=== PATIENT | female | born 2000 | race Caucasian/White ===

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

== ENCOUNTER 2018-02-19 10:22 | Emergency (ER) | payer SELFPAY ==
[2018-02-19 11:03] LABS: #Basophils 0.1 thou/uL (0.0-0.2); #Eosinphils 0.2 thou/uL (0.0-0.7); #Lymphocytes 2.4 thou/uL (1.20-3.40); #Monocytes 0.7 thou/uL (0.11-0.59); #Neutrophils 10.1 thou/uL (1.40-6.50); %Basophils 0.6 % (0.0-1.0); %Eosinophils 1.2 % (0.0-10.0); %Lymphocytes 17.9 % (28.0-48.0); %Monocytes 4.9 % (0.0-4.0); %Neutrophils 75.5 % (31.0-61.0); Hemoglobin 13.3 g/dL (12.0-16.0); Mean Corpuscular HGB CONC 34.4 g/dL (32.0-36.0); Mean Corpuscular Hemoglobin 31.7 pg (25.0-35.0); Mean Corpuscular Volume 92.3 fL (78.0-98.0); Platelet Count 361 thou/uL (130-400); RBC Distribution Width 11.8 % (11.5-14.5); White Blood Cell (WBC) Count 13.4 thou/uL (4.8-10.8)
[2018-02-19 11:27] LABS: ALT (SGPT) 31 U/L (8-55); AST (SGOT) 15 U/L (5-30); Albumin 3.9 g/dL (3.5-5.0); Alkaline Phosphatase 67 U/L (40-150); Anion Gap 13 mmol/L (10-20); BUN (Urea Nitrogen) 7 mg/dL (8.4-21.0); Bilirubin, Total 0.5 mg/dL (0.2-1.2); Calc. Creatinine Clearance 0 mL/min (70-130); Calcium 8.9 mg/dL (7.8-10.44); Carbon Dioxide 21 mmol/L (22-29); Chloride 105 mmol/L (98-107); Estimated GFR-MDRD Greater than 90; Globulin 2.5 g/dL (2.4-3.5); Glucose 138 mg/dL (70-105); Potassium 3.6 mmol/L (3.5-5.1); Protein, Total 6.4 g/dL (6.0-8.3); Sodium 135 mmol/L (136-145)
[2018-02-19 12:18] LABS: Bilirubin Negative (Negative); Blood, Urine Negative (Negative); Clarity CLOUDY (Clear); Glucose, Urine (Dipstick) Negative (Negative); Leukocyte Negative (Negative); Nitrite Negative (Negative); Protein, Urine (Dipstick) Negative (Neg-Trace); Specific Gravity, Urine 1.023 (1.002-1.036); Urobilinogen 0.2 mg/dL (0.2-1.0); pH, Urine 6.5 (5.0-9.0)
== END 2018-02-19 12:40 | disposition home or self-care (01) ==
LOC: ERS 10:22
DX: O21.9 Vomiting of pregnancy, unspecified (principal); O99.351 Diseases of the nervous system complicating pregnancy, first trimester; G43.909 Migraine, unspecified, not intractable, without status migrainosus; Z3A.01 Less than 8 weeks gestation of pregnancy
CPT/HCPCS: 36415; 80053; 81003; 84702; 85025

== ENCOUNTER 2018-03-21 13:54 | Emergency (ER) | payer OTHER, SELFPAY ==
[2018-03-21] MEDS ORDERED: Ondansetron HCl/PF 4 MG/2 ML Vial ONE (14:26)
[2018-03-21] MEDS ORDERED: Acetaminophen 500 MG TAB ONE (14:33)
== END 2018-03-21 16:10 | disposition home or self-care (01) ==
LOC: ERS 13:54
DX: O21.0 Mild hyperemesis gravidarum (principal); O99.351 Diseases of the nervous system complicating pregnancy, first trimester; G43.909 Migraine, unspecified, not intractable, without status migrainosus; Z3A.10 10 weeks gestation of pregnancy
CPT/HCPCS: 96361; 96374; J2405

== ENCOUNTER 2018-06-29 10:44 | Day surgery (SDC) | payer OTHER ==
[2018-06-29 11:18] VITALS: BMI 42.5
--- NOTE | 2018-06-29 11:26 | PDOC.FPROB ---
FMR OB H&P: HPI - History of Present Illness Chief Complaint: Lower pelvic pain History of Present Illness: 17 yo G1 @ 24.4 by LMP c/w 9.1 wk sono. ANNITA 10/11/18. Presents with complaint of lower pelvic pain and cramping that began 5 days ago. Pain described as sharp, 6 -8/10. Has tried resting and stretching which does not relieve pain. Also endorses R sided low back and side pain that began yesterday. Dysuria for 4 days. Never had UTI in past. Subjective fever, reports over the weekend she felt very hot at work, boss told her to go to ED but she just went home. Reports 2-3 watery stools/day for 3 days. Vomiting x1 last night. Able to tolerate water but no food since that time. Primary Care Physician: Pedro FMR OB H&P: Current - Care : 1 Para: 0 Gestational age: 24.4 Due date: 10/11/2018 Dating Criteria: LMP c/w 9.1 wk US - OB Labs Blood type: O RH: positive Antibody Screen: negative HIV: negative RPR: negative HepBsAg: negative Rubella: immune Urine drug screen: not done A1c: 5.4 - First Trimester Ultrasound First trimester: 9.1 wks - Anatomy Survey Anatomy survey: 22.1 wks. EFW 58%, normal FMR OB H&P: History - Past Medical History PMH: Chronic HTN - OB History OB History: None - Surgical History Sx History: None - Social History Social History: Lives with fiance. No tobacco, alcohol, or drug use. - Family History Family History: Adopted FMR OB H&P: Medications - Current Home Medications: Medication Instructions Recorded Confirmed Type Vit 108/Iron/Folic AC 1 capsule PO DAILY 06/29/18 06/29/18 History [ One Tablet] Allergies/Adverse Reactions: Allergies Allergy/AdvReac Type Severity Reaction Status Date / Time lavender (Lavandula Allergy Verified 06/29/18 11:14 angustifolia) FMR OB H&P: ROS - Review of Systems General: reports: fever/chills (subjective) Cardiovascular: denies: chest pain, edema Respiratory: denies: shortness of breath Gastrointestinal: reports: abdominal pain, cramping, vomiting, diarrhea Genitourinary (Female): reports: dysuria. denies: vaginal discharge, vaginal bleeding Musculoskeletal: reports: pain, tenderness FMR OB H&P: Vital Signs - Heart Tones Baseline: 135 FMR OB H&P: Physical Exam - Physical Exam General: NAD, awake, alert and oriented HEENT: MMM Heart: RRR, no murmurs/rubs/gallops, no edema General: CTAB, no respiratory distress Abdomen: gravid, bowel sound present, other (suprabupic tenderness) Musculoskeletal: other (R back and flank TTP) Skin: good tugor, capillary refill <2 seconds FMR OB H&P: A/P - Problem List (1) Lower abdominal pain Current Visit: Yes Status: Acute Code(s): R10.30 - LOWER ABDOMINAL PAIN, UNSPECIFIED Discussion: Date/Time: 06/29/18 1124 Low abdominal pain - associated with dysuria, R back/flank pain, loose stool, N/V - Concern for UTI. Will check CBC, CMP, UA, Ucx - appears clinically well hydrated, encourage PO hydration Dispo: pending workup This H&P was discussed with Dr. Guillermo and Dr. Lopes who agree with the above documentation and plan. Addendum - Attending - Attending Attestation Date/Time: 06/29/18 1353 I personally evaluated the patient and discussed the management with Dr. Stiles and team. I agree with and repeated the History, Examination, Assessment and Plan documented above with any addition or exceptions noted below. Patient with no fever. No RLQ. On exam no sig SPT or CVA tenderness, no guarding, rigidity, mcb tenderness/rovsings. Denies any leakage of fluid or bleeding. Likely gastro vs UTI. Low suspicion for IAI or appendicitis. Workup as listed.
[2018-06-29 11:51] LABS: #Basophils 0.1 thou/uL (0.0-0.2); #Eosinphils 0.3 thou/uL (0.0-0.7); #Lymphocytes 2.4 thou/uL (1.20-3.40); #Monocytes 0.9 thou/uL (0.11-0.59); #Neutrophils 9.3 thou/uL (1.40-6.50); %Basophils 0.4 % (0.0-1.0); %Eosinophils 2.3 % (0.0-10.0); %Lymphocytes 18.2 % (28.0-48.0); %Monocytes 7.1 % (0.0-4.0); Mean Corpuscular HGB CONC 34.7 g/dL (32.0-36.0); Mean Corpuscular Hemoglobin 32.1 pg (25.0-35.0); Mean Corpuscular Volume 92.5 fL (78.0-98.0); Mean Platelet Volume 6.6 fL (7.4-10.4); Platelet Count 377 thou/uL (130-400); RBC Distribution Width 11.8 % (11.5-14.5); Red Blood Cell (RBC) Count 3.42 mill/uL (4.00-5.20); White Blood Cell (WBC) Count 12.9 thou/uL (4.8-10.8)
[2018-06-29 11:56] LABS: Bilirubin Negative (Negative); Blood, Urine Negative (Negative); Clarity TURBID (Clear); Glucose, Urine (Dipstick) Negative (Negative); Leukocyte Negative (Negative); Nitrite Negative (Negative); Protein, Urine (Dipstick) Negative (Neg-Trace); Specific Gravity, Urine 1.018 (1.002-1.036)
[2018-06-29 13:20] LABS: ALT (SGPT) 25 U/L (8-55); AST (SGOT) 13 U/L (5-30); Albumin 3.3 g/dL (3.5-5.0); Alkaline Phosphatase 84 U/L (40-150); Anion Gap 10 mmol/L (10-20); BUN (Urea Nitrogen) 5 mg/dL (8.4-21.0); Bilirubin, Total 0.3 mg/dL (0.2-1.2); Calc. Creatinine Clearance 320 mL/min (70-130); Calcium 8.7 mg/dL (7.8-10.44); Carbon Dioxide 24 mmol/L (22-29); Chloride 108 mmol/L (98-107); Estimated GFR-MDRD Greater than 90; Globulin 2.7 g/dL (2.4-3.5); Glucose 87 mg/dL (70-105); Potassium 4.2 mmol/L (3.5-5.1); Sodium 138 mmol/L (136-145)
--- NOTE | 2018-06-29 13:41 | PDOC.EVN ---
Event Note - Event Note Event Note: Labs normal, UA negative. Patient tolerating liquids and crackers well. Symptoms seem most likely due to gastroenteritis at this time. Considering patient's symptoms, will still send urine culture. Return precautions given including recurrent or worsening pain, fever. Patient has appt in clinic scheduled for tomorrow for follow up. Addendum - Attending - Attending Attestation Date/Time: 06/29/18 1355 Agree with plan. Completely negative UA. Symptoms of AGE, no evidence of dehydration. Tolerating PO well. Strict return warnings and short term follow up in clinic.
== END 2018-06-29 13:39 | disposition home or self-care (01) ==
LOC: L&D/OP 10:44
PROVIDERS: ATTEND Emergency Medicine
DX: O99.89 Other specified diseases and conditions complicating pregnancy, childbirth and the puerperium (principal); R10.2 Pelvic and perineal pain; O16.2 Unspecified maternal hypertension, second trimester; Z3A.24 24 weeks gestation of pregnancy; J30.1 Allergic rhinitis due to pollen
CPT/HCPCS: 36415; 80053; 81003; 85025; 87086

== ENCOUNTER 2018-08-09 17:16 | Day surgery (SDC) | payer OTHER ==
[2018-08-09 18:37] VITALS: BMI 42.5
--- NOTE | 2018-08-09 20:14 | PDOC.LDHP ---
Labor and Delivery H&P Chief complaint: abdominal pain HPI: Ms. Milligan presents today for lower abdominal pain She reports earlier today she was walking to work when she starting having sharp pain in her lower abdomen radiating up her side along with back pain. She has a history of N/V, but has been tolerating liquids well recently. She denies any ctx, LOF, VB/VD, KELLY, CP, or swelling. Current gestational age (weeks): 31 (.1) Due date: 10/10/18 Dating criteria: last menstrual period, first trimester ultrasound Grav: 1 Para: 0 Current complications: none Abnormal US findings: No Past Medical History: none reported Current medications: pre- vitamins Previous surgical history: none Allergies/Adverse Reactions: Allergies Allergy/AdvReac Type Severity Reaction Status Date / Time grass pollen-perennial rye, Allergy Verified 08/09/18 18:07 standar lavender (Lavandula Allergy Verified 08/09/18 18:07 angustifolia) Social history: none - Physical Exam Vital signs reviewed and normal: yes General: NAD Heart: RRR Lungs: CTAB Abdomen: NTTP Extremeties: no edema FHT: variability present (baseline 150, acceleration, no decels) [place] contractions every: none - Assessment round ligament pain - Plan -: DC home after counseling regarding pains and appropriate analgesics
== END 2018-08-09 20:28 | disposition home health service (06) ==
LOC: L&D/OP 17:16
PROVIDERS: ATTEND Family Medicine
DX: O99.89 Other specified diseases and conditions complicating pregnancy, childbirth and the puerperium (principal); R10.2 Pelvic and perineal pain; Z79.899 Other long term (current) drug therapy; Z91.048 Other nonmedicinal substance allergy status; Z3A.31 31 weeks gestation of pregnancy
CPT/HCPCS: 99282

== ENCOUNTER 2018-09-28 20:00 | Inpatient (IN) | payer OTHER ==
[2018-09-28 21:37] VITALS: BMI 42.8
[2018-09-28] MEDS ORDERED: NS / Oxytocin 40 units/1000ml 1,000 ML IV PRN (21:59)
[2018-09-28] MEDS ORDERED: Promethazine HCl 25 MG/ML VIAL IM PRN (21:59)
[2018-09-28] MEDS ORDERED: Lidocaine 1% (PF) 30 ML VIAL SC PRN (21:59)
[2018-09-28] MEDS ORDERED: Ondansetron PF 4 MG/2 ML Vial IVP PRN (21:59)
[2018-09-28] MEDS: Lactated Ringer's 1,000 ML IV SCH (22:11)
[2018-09-28] MEDS ORDERED: Misoprostol 100 MCG TAB ONE (22:34)
[2018-09-28 23:11] LABS: Hemoglobin 10.4 g/dL (12.0-16.0); Mean Corpuscular Hemoglobin 30.3 pg (25.0-35.0); Mean Platelet Volume 7.4 fL (7.4-10.4); Platelet Count 418 thou/uL (130-400); RBC Distribution Width 12.6 % (11.5-14.5); Red Blood Cell (RBC) Count 3.44 mill/uL (4.00-5.20); White Blood Cell (WBC) Count 13.1 thou/uL (4.8-10.8)
--- NOTE | 2018-09-28 23:23 | PDOC.FPROB ---
FMR OB H&P: HPI - History of Present Illness Chief Complaint: induction of labor Indentification: G1 History of Present Illness: 17yo G1 at 38.1w EGA by LMP and 9.1w US presents for induction of labor 2/2 pregestational htn. Pt is doing well with no complaints. No KELLY, visual changes, no CP no SOB no edema. Pt denies vaginal bleeding/LOF and states she has mild painless contractions every 20 min. Reports good mvmt. Primary Care Physician: Dr. Michelle Vasquez FMR OB H&P: Current - Care : G1 Gestational age: 38.1 Dating Criteria: LMP and 1TUS - OB Labs Blood type: O RH: positive Antibody Screen: negative HIV: negative RPR: negative HepBsAg: negative Rubella: immune GBS: negative FMR OB H&P: History - Past Medical History PMH: HTN - Surgical History Sx History: wisdom teeth 2016 - Social History Social History: denies t/a/d - Family History Family History: unkown. pt adopted FMR OB H&P: Medications - Current Home Medications: Medication Instructions Recorded Confirmed Type Vit 108/Iron/Folic AC 1 capsule PO DAILY 06/29/18 09/28/18 History [ One Tablet] Allergies/Adverse Reactions: Allergies Allergy/AdvReac Type Severity Reaction Status Date / Time grass pollen-perennial rye, Allergy Verified 09/28/18 21:35 standar lavender (Lavandula Allergy Verified 09/28/18 21:35 angustifolia) FMR OB H&P: ROS - Review of Systems General: denies: fever/chills, fatigue Eyes: denies: eye pain, vision changes ENT: denies: nasal congestion, ear pain Cardiovascular: denies: chest pain, palpitation, edema Respiratory: denies: cough, congestion, shortness of breath Gastrointestinal: denies: abdominal pain, indigestion Genitourinary (Female): denies: incontinence, dysuria Musculoskeletal: denies: pain, stiffness, tenderness Neurologic: denies: numbness, syncope, seizures Integumentary: denies: rash, lesions Endocrine: denies: cold intolerance, heat intolerance Hematologic/Lymphatic: denies: prolonged or excessive bleeding Psychological: denies: depression, anxiety FMR OB H&P: Vital Signs - Maternal Vital signs: BP 120/84, all other WNL - Heart Tones Baseline: 150 Variability: moderate Category: category 1 [place] contractions every: 8min FMR OB H&P: Physical Exam - Physical Exam General: NAD, awake, alert and oriented HEENT: normocephalic and atraumatic, EOMI, grossly normal vision, grossly normal hearing Neck: supple, trachea midline Chest: non-tender to palpation Breast: symmetric Heart: RRR, normal S1/S2 General: CTAB, no respiratory distress Abdomen: soft, gravid Musculoskeletal: normal gait and station, pulses present Neurological: no tremor, no focal deficit Skin: no rash, good tugor Lymphatic: no unusual bruising or bleeding, no purpura Psychiatric: intact recent and remote memory, good judgement and insight - Pelvic Exam Vulva: normal hair distribution SVE: //-3 FMR OB H&P: Results - Labs Lab results: Laboratory Results - last 24 hr 09/28/18 22:59 WBC 13.1 H RBC 3.44 L Hgb 10.4 L Hct 30.6 L MCV 89.0 MCH 30.3 MCHC 34.0 RDW 12.6 Plt Count 418 H MPV 7.4 FMR OB H&P: A/P - Problem List (1) Encounter for induction of labor Current Visit: Yes Status: Acute Code(s): Z34.90 - ENCNTR FOR SUPRVSN OF NORMAL , UNSP, UNSP TRIMESTER (2) Hypertension affecting in third trimester Current Visit: Yes Status: Acute Code(s): O16.3 - UNSPECIFIED MATERNAL HYPERTENSION, THIRD TRIMESTER Discussion: Term IUP, induction of labor A- Pt doing well and ready for induction. Cervix is unfavorable at this time. labwork over all unremarkable other than ALT 69 in 02/2018. P- Admit to L and D for induction - cytotec vaginally - cervical checks q4hr - monitor FHT - consult anesthesiology for epidural Pregestational HTN A- BPS < 140/90 in clinic, today they wnl, pt has no symptoms of pre-e or hypertensive emergency. Recent BPP/NST 04/07 P- monitor BPs Addendum - Attending - Attending Attestation Date/Time: 09/29/18 0700 I personally evaluated the patient and discussed the management with Dr. Stephenson at time of admission last night. I agree with the History, Examination, Assessment and Plan documented above with any addition or exceptions noted below. Medically indicated induction at 38 weeks for chronic HTN in consistent with ACOG recommendations.
[2018-09-28 23:42] LABS: Syphilis Antibody Nonreactive (Nonreactive); Syphilis Antibody Index 0.03 S/CO (<1.00 Non-Reactive)
[2018-09-28 23:53] LABS: HBSAg Index 0.41 S/CO (0-0.99); Hep B Surf Ag Non-Reactive S/CO (NonReactive)
[2018-09-29 00:04] LABS: ALT (SGPT) 22 U/L (8-55); AST (SGOT) 18 U/L (5-30); Albumin 3.4 g/dL (3.5-5.0); Alkaline Phosphatase 185 U/L (40-150); Anion Gap 15 mmol/L (10-20); BUN (Urea Nitrogen) 8 mg/dL (8.4-21.0); Bilirubin, Total 0.3 mg/dL (0.2-1.2); Calc. Creatinine Clearance 300 mL/min (70-130); Calcium 9.4 mg/dL (7.8-10.44); Carbon Dioxide 21 mmol/L (22-29); Chloride 107 mmol/L (98-107); Estimated GFR-MDRD Greater than 90; Globulin 2.8 g/dL (2.4-3.5); Glucose 99 mg/dL (70-105); Potassium 4.2 mmol/L (3.5-5.1); Protein, Total 6.2 g/dL (6.0-8.3); Sodium 139 mmol/L (136-145)
[2018-09-29] MEDS: Lactated Ringer's 1,000 ML IV SCH (02:58)
--- NOTE | 2018-09-29 03:11 | PDOC.LDPN ---
Labor & Delivery Progress Note - Subjective Subjective: comfortable, no concerns - Objective Vital signs reviewed and normal: yes General: NAD, resting SVE: 1/60/-3 FHT: category 1 (baseline 150) [place] contractions every: 2-3 Resuscitative measures: maternal IV fluids - Assessment (1) Encounter for induction of labor Code(s): Z34.90 - ENCNTR FOR SUPRVSN OF NORMAL , UNSP, UNSP TRIMESTER Current Visit: Yes Status: Acute (2) Hypertension affecting in third trimester Code(s): O16.3 - UNSPECIFIED MATERNAL HYPERTENSION, THIRD TRIMESTER Current Visit: Yes Status: Acute Plan: continue plan of care -: - 2nd dose of cytotec held for frequency of contractions, continue as tolerated - continue IVF - continue to monitor FHT
[2018-09-29] MEDS: Misoprostol 100 MCG TAB VAG SCH ×4 (04:20→12:54)
--- NOTE | 2018-09-29 07:29 | PDOC.LDPN ---
Labor & Delivery Progress Note - Subjective Subjective: comfortable - Objective Vital signs reviewed and normal: yes General: NAD, resting Uterine fundus: non tender Dilation: 1 Effacement: 50% Station: -2 FHT: category [address] [place] contractions every: 8min -: 17yo G1 at 38.2wk by LMP and 9.1wk US sIUP - Placed cytotec as she is no longer sabine and no change since last SVE - /-2 - FHTs Cat 1 - Continue serial cerival exams - No G/C screening done this , placed order for G/C cHTN - Not on meds - BP 113/68 - Pre-E workup neg x2 in clinic BMI 41 - Wt has been stable during 3T - 12lb wt gain this 1T tobacco abuse - Not currently smoking Migraines - Stable Anemia of - Hgb 10.4 Teen
--- NOTE | 2018-09-29 11:42 | PDOC.LDPN ---
Labor & Delivery Progress Note - Subjective Subjective: comfortable - Objective Vital signs reviewed and normal: yes General: NAD Uterine fundus: non tender Dilation: 1 Effacement: 50% Station: -2 FHT: category 1 (150/mod/+ accels/no decels) [place] contractions every: 2-4min Plan: continue plan of care -: 17yo G1 at 38.2wk by LMP and 9.1wk US sIUP - Placed cytotec x4 - Radu every 2-4 min - 1/50/-2, unchanged - FHTs 150 Cat 1 - Continue serial cervical exams - G/C pending cHTN - Not on meds - BPs <130/90 - Pre-E workup neg x2 in clinic BMI 41 - Wt has been stable during 3T - 12lb wt gain this 1T tobacco abuse - Not currently smoking Migraines - Stable Anemia of - Hgb 10.4 Teen
--- NOTE | 2018-09-29 17:30 | ULT ---
NONSTRESS BIOPHYSICAL PROFILE: 09/29/18 HISTORY: Failed induction of labor. COMPARISON: None. FINDINGS: A single intrauterine gestation with vertex presentation. heart tones with a rate of 145 beats per minute. Amniotic fluid index is 13.4 cm. Anterior placenta. NONSTRESS BIOPHYSICAL PROFILE: tone - 2 breathing - 2 movement - 2 Amniotic fluid - 2 Total score 8 out of 8. IMPRESSION: Nonstress biophysical profile with a total score of 8 out of 8. POS: [facility]
--- NOTE | 2018-09-29 18:04 | PDOC.EVN ---
Event Note - Event Note Event Note: Patient remained unchanged after 4 doses of vaginal cytotec. She started sabine after her 2nd dose but stopped shortly after her 3rd dose and did not resume contractions after her 3rd or 4th dose. Her cervix remained unchanged for roughly 6 hours. During the entire induction, the FHT was reassuring with no signs of distress. Additionally, review of blood pressures during the current visit and previous visits revealed a highest recorded blood pressure of 138/79 which occurred during the induction. She had 2 additional BPs in the 120s/70s. Her mother also reported no abnormal BP readings at home. Patient states her BP usually becomes elevated when she comes to the clinic but agreed that her BPs were normal at home. Give that she had not progressed with the induction and her chronic hypertension may be white coat hypertension. A long discussion was had regarding her options for the management of her inductions. These options included a 5th dose of Cytotec, placement of a Cooks balloon, or stopping inductive measures with plan to repeat the induction next week. She was counseled that continuing with the induction at this time did increase her risk of intraamniotic infection, distress, and need for . She decided that she would like to go home and attempt the induction next week. Prior to discharge, a BPP/NST was performed and was 8/8 with a reactive NST. She was not sabine on the monitor. She was given strict return to care precautions including decreased movement, loss of fluid, contractions, and vaginal bleeding. A follow up BPP/NST was scheduled at 1500 on 10/01/18 at [facility] and she was scheduled for repeat IOL on the evening of 10/04/18. All of her questions were answered and she was subsequently discharged.
[2018-10-01 17:06] LABS: Chlamydia by PCR DETECTED (NotDetected); GC by PCR Not Detected (NotDetected)
== END 2018-09-29 17:15 | disposition home health service (06) | DRG 833 ==
LOC: L&D 21:04
PROVIDERS: ADMIT Family Medicine; ATTEND Family Medicine
DX: O13.3 Gestational [pregnancy-induced] hypertension without significant proteinuria, third trimester (principal); D64.9 Anemia, unspecified; G43.909 Migraine, unspecified, not intractable, without status migrainosus; O99.013 Anemia complicating pregnancy, third trimester; O99.353 Diseases of the nervous system complicating pregnancy, third trimester; Z3A.38 38 weeks gestation of pregnancy; Z87.891 Personal history of nicotine dependence
CPT/HCPCS: 36415; 76819; 80053; 84550; 85027; 86780; 86850; 86900; 86901; 87340; 87491; 87591

== ENCOUNTER 2018-10-04 22:00 | Inpatient (IN) | payer OTHER ==
--- NOTE | 2018-10-04 21:07 | PDOC.FPROB ---
FMR OB H&P: HPI - History of Present Illness Chief Complaint: induction for cHTN Indentification: 17yo G1 at 39 wks by LMP and 9.1w US History of Present Illness: 17yo at 39 wks by LMP and 9.1w US presents for induction of labor 2/2 pregestational htn. Primary Care Physician: Dr. Michelle Vasquez FMR OB H&P: Current - Care : 1 Para: 0 Gestational age: 39 Due date: 10/11/18 Dating Criteria: LMP/9.1 wk sono Course/Complications: cHTN - OB Labs Blood type: O RH: positive Antibody Screen: negative HIV: negative RPR: negative HepBsAg: negative Rubella: immune GBS: negative FMR OB H&P: History - Past Medical History PMH: cHTN - Surgical History Sx History: wisdom teeth, 2016 - Social History Social History: denies t/a/d use - Family History Family History: unknown as patient is adopted FMR OB H&P: Medications - Current Home Medications: Medication Instructions Recorded Confirmed Type Vit 108/Iron/Folic AC 1 capsule PO DAILY 06/29/18 09/28/18 History [ One Tablet] Allergies/Adverse Reactions: Allergies Allergy/AdvReac Type Severity Reaction Status Date / Time grass pollen-perennial rye, Allergy Verified 09/28/18 21:35 standar lavender (Lavandula Allergy Verified 09/28/18 21:35 angustifolia) FMR OB H&P: A/P - Problem List (1) Encounter for induction of labor Status: Acute Code(s): Z34.90 - ENCNTR FOR SUPRVSN OF NORMAL , UNSP, UNSP TRIMESTER (2) Hypertension affecting in third trimester Status: Acute Code(s): O16.3 - UNSPECIFIED MATERNAL HYPERTENSION, THIRD TRIMESTER Discussion: Date/Time: 10/04/182104 TIUP, induction of labor for cHTN -Admit to L&D for induction -SVE: -FHTs: -previous failed induction with cytotecx4 1 week ago -cytotec? -cervical checks q4hr -continuous FHT -consult anesthesia for epidural cHTN -No s/s HTN? -Continue to monitor BPs L Buse PGY-1
[2018-10-05] MEDS ORDERED: Sodium Chloride 0.9% (PF) 10 ML VIAL ONE (09:00)
[2018-10-05] MEDS ORDERED: Bupivacaine 0.25% HCL 30 ML VIAL ONE (09:00)
[2018-10-05] MEDS ORDERED: Bupivacaine HCl 0.5%/Epinephrine 1:200,000/PF 30 ml Vial ONE (09:00)
[2018-10-05 22:14] VITALS: BMI 42.8
[2018-10-05] MEDS: Lactated Ringer's 1,000 ML IV SCH (22:45)
[2018-10-05] MEDS ORDERED: Ibuprofen 800 MG TAB PO PRN (22:58)
[2018-10-05] MEDS ORDERED: Promethazine HCl 25 MG/ML VIAL IM PRN (22:58)
[2018-10-05] MEDS ORDERED: Lidocaine 1% (PF) 30 ML VIAL SC PRN (22:58)
[2018-10-05] MEDS ORDERED: NS / Oxytocin 40 units/1000ml 1,000 ML IV PRN (22:58)
[2018-10-05 23:07] LABS: Hemoglobin 10.6 g/dL (12.0-16.0); Mean Corpuscular HGB CONC 34.6 g/dL (32.0-36.0); Mean Corpuscular Hemoglobin 30.7 pg (25.0-35.0); Mean Corpuscular Volume 88.6 fL (78.0-98.0); Mean Platelet Volume 7.3 fL (7.4-10.4); Platelet Count 404 thou/uL (130-400); RBC Distribution Width 12.8 % (11.5-14.5); Red Blood Cell (RBC) Count 3.45 mill/uL (4.00-5.20); White Blood Cell (WBC) Count 14.3 thou/uL (4.8-10.8)
[2018-10-05 23:46] LABS: HBSAg Index 0.28 S/CO (0-0.99); Hep B Surf Ag Non-Reactive S/CO (NonReactive)
[2018-10-05 23:54] LABS: Syphilis Antibody Nonreactive (Nonreactive); Syphilis Antibody Index 0.03 S/CO (<1.00 Non-Reactive)
[2018-10-05] MEDS ORDERED: Misoprostol 100 MCG TAB ONE (23:55)
--- NOTE | 2018-10-06 02:52 | PDOC.FPRHP ---
- History of Present Illness Chief Complaint: medically indicated IOL History of Present Illness: 17yo G1 at 39.1 EGA by LMP and 9.1w US presents for medically indicated IOL for cHTN. Pt is doing well with no complaints. No KELLY, visual changes, no CP no SOB no edema. Pt denies vaginal bleeding/LOF and states she is feeling CTX. Reports good mvmt. - Allergies/Adverse Reactions Allergies Allergy/AdvReac Type Severity Reaction Status Date / Time grass pollen-perennial rye, Allergy Verified 09/28/18 21:35 standar lavender (Lavandula Allergy Verified 09/28/18 21:35 angustifolia) - Home Medications Medication Instructions Recorded Confirmed Type Vit 108/Iron/Folic AC 1 capsule PO DAILY 06/29/18 10/05/18 History [ One Tablet] - History PMHx: cHTN PSHx: wisdom teeth FHx:unknown, pt adopted Social: denies e/t/d - Review of Systems General: denies: fever/chills, weight/appetite/sleep changes Eyes: denies: eye pain, vision changes ENT: denies: nasal congestion, rhinorrhea Respiratory: denies: cough, shortness of breath Cardiovascular: denies: chest pain, palpitation, edema Gastrointestinal: denies: nausea, vomiting, diarrhea, constipation, abdominal pain Skin: denies: rashes, lesions Musculoskeletal: denies: pain, tenderness Neurological: denies: seizure Psychological: denies: anxiety, depression - Vital signs BP: [] HR: [] RR: [] Tmax: [] Pox: []% on [] Wt: [] - Physical Exam Constitutional: NAD, awake, alert and oriented HEENT: normocephalic and atraumatic, PERRLA, EOMI Neck: supple, FROM, trachea midline Chest: no-tender to palpation, no lesions Heart: RRR, normal S1/S2, no murmurs/rubs/gallops Lungs: CTAB, no respiratory distress, no wheezing, no retractions Abdomen: soft FMR H&P: Results - Labs Result Diagrams: 10/05/18 22:54 Lab results: WBC 14.3 thou/uL (4.8-10.8) H 10/05/18 22:54 Hgb 10.6 g/dL (12.0-16.0) L 10/05/18 22:54 Hct 30.6 % (36.0-47.0) L 10/05/18 22:54 MCV 88.6 fL (78.0-98.0) 10/05/18 22:54 Plt Count 404 thou/uL (130-400) H 10/05/18 22:54 FMR H&P: Upper Level - Plan Date/Time: 10/06/18 0251 I, [], have evaluated this patient and agree with findings/plan as outlined by media relations intern resident. Pertinent changes/additions are listed here.
--- NOTE | 2018-10-06 02:55 | PDOC.LDHP ---
Labor and Delivery H&P HPI: 17yo G1 at 39.1w EGA by LMP and 9.1w US presents for medically IOL for cHTN, controlled. Pt is doing well with no complaints. No KELLY, visual changes, no CP no SOB no edema. Pt denies vaginal bleeding/LOF and states she feels CTX. Reports good mvmt. Current gestational age (weeks): 39 (39.2) Grav: 1 Para: 0 Current complications: other (chTN prior to ) Abnormal US findings: No Current medications: pre-beck vitamins, other (ASA in ) Allergies/Adverse Reactions: Allergies Allergy/AdvReac Type Severity Reaction Status Date / Time grass pollen-perennial rye, Allergy Verified 09/28/18 21:35 standar lavender (Lavandula Allergy Verified 09/28/18 21:35 angustifolia) - Physical Exam Lungs: nonlabored breathing Abdomen: NTTP Extremeties: no edema FHT: category 1, category 2 (150/min-mod/accels) - Vaginal Exam cm dilated: 2 Effacement: 50% Station: -2 - OB Labs Blood type: O RH: positive Antibody Screen: negative HIV: negative RPR: negative HEPSAg: negative GBS: negative Rubella: immune - Assessment L&D Assessment: medically indicated induction - Plan Plan: admit to L&D, cervical ripening -: Term sIUP, med. indicated induction of labor -admit to L&D for induction -/-3, cytotec x 1 & recheck -uterine irritability -FHT Cat 1-2 due to minimal variability after first cytotec, has now since resolved -consult anesthesia for epidural cHTN -BP <140/<90 here thus far, pt asx -Continue to monitor Obesity -will student counselor on lifestyle modification Discussed w/ Dr. Mcqueen Addendum - Attending - Attending Attestation Date/Time: 10/06/18 1044 I personally evaluated the patient and discussed the management with Dr. Matamoros at time of admission last night. I agree with the History, Examination, Assessment and Plan documented above with any addition or exceptions noted below.
[2018-10-06] MEDS: Lactated Ringer's 1,000 ML IV SCH ×4 (04:14→14:47)
[2018-10-06] MEDS: Misoprostol 100 MCG TAB VAG SCH ×3 (04:14→10:38)
[2018-10-06] MEDS ORDERED: Butorphanol Tartrate 1 MG/ML VIAL ONE (04:42)
[2018-10-06] MEDS ORDERED: Butorphanol Tartrate 1 MG/ML VIAL SLOW IVP PRN (05:14)
[2018-10-06] MEDS: Ondansetron PF 4 MG/2 ML Vial IVP PRN ×2 (07:36→13:21)
--- NOTE | 2018-10-06 08:02 | PDOC.LDPN ---
Labor & Delivery Progress Note - Subjective Subjective: painful contractions - Objective Vital signs reviewed and normal: yes General: NAD, resting Uterine fundus: non tender Dilation: 2.5-3 Effacement: 75% Station: -2 FHT: category 2 [place] contractions every: q7min Plan: continue plan of care -: Term sIUP, med. indicated induction of labor -admit to L&D for induction -/-3, cytotec x 1 -uterine irritability -FHT Cat 1-2 due to minimal variability after first cytotec, hold off on cytotec -stadol x1 -consult anesthesia for epidural -will bolus, check sugar to see if low cHTN -BP <140/<90 here thus far, pt asx -Continue to monitor Obesity -will residence counselor on lifestyle modification
[2018-10-06] MEDS ORDERED: Acetaminophen 325 MG TAB PO PRN (08:30)
[2018-10-06] MEDS ORDERED: ePHEDrine/0.9% NaCl/PF SYRINGE 50 mg/10 ml SLOW IVP PRN (08:30)
[2018-10-06] MEDS ORDERED: diphenhydrAMINE 50 MG/ML VIAL IVP PRN (08:30)
[2018-10-06] MEDS ORDERED: Lactated Ringer's 500 ML IV PRN (08:30)
[2018-10-06] MEDS ORDERED: Promethazine HCl 25 MG/ML VIAL IM PRN (08:30)
[2018-10-06] MEDS ORDERED: Communication Order-Pharmacy FS SCH (08:30)
[2018-10-06] MEDS ORDERED: Naloxone HCl 0.4 mg/ml Vial IVP PRN ×2 (08:30)
[2018-10-06] MEDS ORDERED: Ondansetron PF 4 MG/2 ML Vial IVP PRN (08:30)
[2018-10-06] MEDS ORDERED: Eucerin (Mineral Oil/Petrolatum,White) 30 gm Jar TOP PRN (08:30)
[2018-10-06] MEDS ORDERED: Fentanyl 4 mcg/Bup 0.1% Cadd 0 ML ONE (08:40)
[2018-10-06] MEDS ORDERED: Fentanyl 4 mcg/Bup 0.1% Cadd 100 ML ONE ×3 (08:46→19:07)
[2018-10-06] MEDS ORDERED: Azithromycin 250 MG TAB PO SCH (09:00)
[2018-10-06] MEDS ORDERED: Azithromycin 200 MG/5 ML Oral Suspension PO SCH (09:00)
[2018-10-06] MEDS ORDERED: NS w/ Oxytocin 10 units 500 ML IV SCH ×2 (11:30)
--- NOTE | 2018-10-06 11:52 | PDOC.LDPN ---
Labor & Delivery Progress Note - Subjective Subjective: comfortable - Objective Vital signs reviewed and normal: yes General: NAD Uterine fundus: non tender Dilation: 4 Effacement: 75% Station: -2 FHT: category 1 [place] contractions every: 3min - Assessment (1) Chlamydia infection affecting Code(s): O98.819 - OTH MATERNAL INFEC/PARASTC DISEASES COMP PREG, UNSP TRI; A74.9 - CHLAMYDIAL INFECTION, UNSPECIFIED Current Visit: Yes Status: Acute (2) Obesity affecting Code(s): O99.210 - OBESITY COMPLICATING , UNSPECIFIED TRIMESTER Current Visit: Yes Status: Acute (3) Encounter for induction of labor Code(s): Z34.90 - ENCNTR FOR SUPRVSN OF NORMAL , UNSP, UNSP TRIMESTER Current Visit: No Status: Acute (4) Hypertension affecting in third trimester Code(s): O16.3 - UNSPECIFIED MATERNAL HYPERTENSION, THIRD TRIMESTER Current Visit: No Status: Acute Plan: continue plan of care, labor augmentation -: 17yo G1 at 39.2wk by LMP and 9.1wk US Term sIUP, IOL for cHTN and Obesity - SVE /-2, cytotec x2. Starting Pitocin - Epidural placed, pt resting comfortably - FHT Cat 1 - Continue serial cervical checks Chlamydia infection - Positive on 09/29/18 - Will tx with Azithromycin - Cable Television Program Director on importance of close follow up outpt for signs conjunctivitis and pneumonia in infant cHTN - BPs <140/<90, pt asx - Continue to monitor - Pre-E workup neg x2 in clinic BMI 41 - Wt has been stable during 3T - 12lb wt gain this 1T tobacco abuse - Not currently smoking Migraines - Stable Anemia of - Hgb 10.6 Teen
[2018-10-06] MEDS: Fentanyl 4 mcg/Bupivacaine 0.1% Cassette 100 ML EPIDURAL SCH ×2 (14:37→19:13)
[2018-10-06] MEDS ORDERED: Fentanyl 100 MCG/2 ML VIAL ONE (16:06)
--- NOTE | 2018-10-06 16:35 | PDOC.LDPN ---
Labor & Delivery Progress Note - Subjective Subjective: painful contractions - Objective Vital signs reviewed and normal: yes General: breathing through contractions Uterine fundus: non tender Dilation: 6 Effacement: 90% Station: 0 FHT: category 2 (minimal variability) [place] contractions every: 3 IUPC placed: yes FSE placed: yes Resuscitative measures: maternal IV fluids, maternal position change - Assessment (1) Encounter for induction of labor Code(s): Z34.90 - ENCNTR FOR SUPRVSN OF NORMAL , UNSP, UNSP TRIMESTER Current Visit: No Status: Acute Plan: continue plan of care, pitocin for augmentation -: 17 yo @ 39.2 here for IOL 2/2 chronic HTN affecting FSE and IUPC placed for adequate monitoring. Pt has had persistent cat 2 strip w / positive accels with scalp stim. Will continue monitoring titrate pit to adequate MVUs recheck 2 hours Addendum - Attending - Attending Attestation Date/Time: 10/06/18 4051 I personally evaluated the patient and discussed the management with Dr. Vail I agree with the History, Examination, Assessment and Plan documented above with any addition or exceptions noted below. Currently cat I tracing. Moderate variability with + spontaneous accels and no decels. Has had periods of minimal and moderate variability during the day with positive acceleration to scalp stim. Would not classify tracing as persistently cat II. Overall tracing is reassuring. BP elevated when pt had severe pain but epidural bolused and BP back to normal with pain relief. Pitocin is off and pt currently having adequate contractions without it. Last check /1. Recheck in 2 hrs.
--- NOTE | 2018-10-06 18:10 | PDOC.LDPN ---
Labor & Delivery Progress Note - Subjective Subjective: painful contractions - Objective Abnormal vital signs: Intermittent BP elevation Systolic max 153, diastolic 108 General: breathing through contractions Dilation: 6 Effacement: 90% Station: 0 FHT: category 1 (130/moderate/no accels/no decels) [place] contractions every: 2-3min AROM: clear fluid - Assessment (1) Chlamydia infection affecting Code(s): O98.819 - OTH MATERNAL INFEC/PARASTC DISEASES COMP PREG, UNSP TRI; A74.9 - CHLAMYDIAL INFECTION, UNSPECIFIED Current Visit: Yes Status: Acute (2) Obesity affecting Code(s): O99.210 - OBESITY COMPLICATING , UNSPECIFIED TRIMESTER Current Visit: Yes Status: Acute (3) Encounter for induction of labor Code(s): Z34.90 - ENCNTR FOR SUPRVSN OF NORMAL , UNSP, UNSP TRIMESTER Current Visit: No Status: Acute (4) Hypertension affecting in third trimester Code(s): O16.3 - UNSPECIFIED MATERNAL HYPERTENSION, THIRD TRIMESTER Current Visit: No Status: Acute Plan: continue plan of care, labor augmentation -: 17yo G1 at 39.2wk by LMP and 9.1wk US Term sIUP, IOL for cHTN and Obesity - SVE /, cytotec x2. Continue Pitocin, titrate to adequate mvus - Epidural placed, Anesthesia consulted- pt very uncomfortable. BP tends to increase with increasing pain - Some intermittent elevated blood pressures - sROM with clear fluid - FSE and IUPC placed - FHT currently Cat 1. Has been Cat 2 intermittently with positive accels with scalp stim - Continue serial cervical checks Chlamydia infection - Positive on 09/29/18 - Tx'ed with Azithromycin 10/06 - Retail Advisor on importance of close follow up outpt for signs conjunctivitis and pneumonia in infant cHTN: Intermittently elevated BPs. Continue to monitor. Pre-E workup neg x2 in clinic BMI 41: Wt has been stable during 3T. 12lb wt gain this 1T tobacco abuse: Not currently smoking Migraines: Stable Anemia of : Hgb 10.6 Teen
--- NOTE | 2018-10-06 22:32 | PDOC.OPDEL ---
OB Operative/Delivery Note - Additional Findings/Plan Compilations/Other Findings: Delivering Physician: Michael Vasquez MD, and Carola Baird MD, Segundo Mcqueen MD Attending: Dr Segundo Mcqueen Procedure: Spontaneous Vaginal Delivery Anesthesia: epidural EBL: 450 ml Pre-op Diagnosis: 1. Term intrauterine in labor 2. Chlamydia, treated 10/06 3. BMI>40 4. cHTN 5. Teen 6. Migraines, controlled 7. Anemia of Post-op Diagnosis: 1. Term intrauterine , delivered 2. same as above Indications: A 17y/o female presents for mIOL for cHTN and obesity Delivery Note: This is 17yo F @ 39.2wks who delivered a viable F infant at 2108 on . Following an uneventful antepartum course, a vigorous female was delivered over an intact perineum in the occipitoanterior position. Anterior Shoulder and then remainder of the body delivered. No nuchal cord. The head was held down and mouth and nares were bulb suctioned. Cord clamped after delayed cord clamping and cut and cord blood collected. Placenta delivered intact in the [place] presentation with a 3 vessel cord noted. Fundal massage was performed and the fundus was firm. The cervix and vagina were inspected and found to have right periurethral laceration requiring 1 figure of 8 stitch, hemostatic with good approximation. went to nursery in good condition for routine care. Apgars were 8/9 at 1 & 5 minutes, respectively. Patient tolerated delivery well and went to after routine recovery/care.
[2018-10-06] MEDS ORDERED: Bisacodyl 10 MG SUPP PR PRN (22:35)
[2018-10-06] MEDS ORDERED: Adacel (T-DAP) 0.5 ML SYRINGE IM ONE (22:35)
[2018-10-06] MEDS ORDERED: NS / Oxytocin 40 units/1000ml 1,000 ML IV SCH (22:35)
[2018-10-06] MEDS ORDERED: Milk Of Magnesia 30 ML UDCUP PO PRN (22:35)
[2018-10-07] MEDS: Ibuprofen 800 MG TAB PO SCH ×4 (00:36→21:36)
--- NOTE | 2018-10-07 06:50 | PDOC.PP ---
Post Progress Note Post Day #: 1 Subjective: Feeling well this morning. Denies pain. Ambulating. Reports is going well but would like assistance from real estate listing consultant. Voiding and passing gas. Has not eaten yet but ordered breakfast, reports good appetite. PO intake tolerated: no Flatus: yes Ambulation: yes Vital Signs (12 hours) Temp Pulse Resp BP Pulse Ox 10/07/18 04:48 98.5 F 90 18 110/56 L 10/07/18 00:36 98.2 F 83 18 113/65 10/06/18 22:50 97.5 F L 89 18 121/72 98 Weight Weight 127.913 kg - Physical Examination General: NAD Cardiovascular: no m/r/g, RRR Respiratory: clear to auscultation bilaterally, non-labored breathing Abdominal: + bowel sounds, lochia (Similar to period), no distention, appropriately TTP Deviation from normal: Uterus palpable below umbilicus Skin: no rash Neurological: no gross focal deficits Psychiatric: A&Ox3, normal affect Result Diagrams: 10/05/18 22:54 Additional Labs: Post Labs Blood Type O POSITIVE 10/05/18 22:54 Hep Bs Antigen Non-Reactive S/CO (NonReactive) 10/05/18 22:54 (1) Chlamydia infection affecting Code(s): O98.819 - OTH MATERNAL INFEC/PARASTC DISEASES COMP PREG, UNSP TRI; A74.9 - CHLAMYDIAL INFECTION, UNSPECIFIED Status: Acute (2) Obesity affecting Code(s): O99.210 - OBESITY COMPLICATING , UNSPECIFIED TRIMESTER Status: Acute (3) Hypertension affecting in third trimester Code(s): O16.3 - UNSPECIFIED MATERNAL HYPERTENSION, THIRD TRIMESTER Status: Acute (4) with complication, delivered Code(s): O26.90 - RELATED CONDITIONS, UNSP, UNSPECIFIED TRIMESTER Status: Acute - Assessment/Plan 17yo delivered TAGA female at 2108 on 10/06 at 39.2wk by LMP and 9.1wk US Term sIUP, IOL for cHTN and Obesity, delivered - Pain well controlled - Pt , consulted - Meeting PP milestones, plans to eat breakfast this AM - Desires depo for PP contraception Chlamydia infection - Positive on 09/29/18 - Tx'ed with Azithromycin 10/06 - Belt Measurer on importance of close follow up outpt for signs conjunctivitis and pneumonia in cHTN: Intermittently elevated BPs. Continue to monitor. Pre-E workup neg x2 in clinic BMI 41: Wt has been stable during 3T. 12lb wt gain this Anemia of : Hgb 10.6 Teen Addendum - Attending - Attending Attestation Date/Time: 10/08/18 1012 I personally evaluated the patient and discussed the management with Dr. Vasquez I agree with the History, Examination, Assessment and Plan documented above with any addition or exceptions noted below. Stable PPD #1. Continue routine PP care.
[2018-10-07] MEDS: Ferrous Sulfate 325 MG TAB PO SCH ×2 (07:31→18:16)
[2018-10-07] MEDS: Docusate Calcium (SURFAK) 240 MG CAP PO SCH ×2 (08:42→21:36)
[2018-10-08] MEDS: Ibuprofen 800 MG TAB PO SCH (05:39)
--- NOTE | 2018-10-08 07:01 | PDOC.PP ---
Post Progress Note Post Day #: 2 Subjective: No overnight events. Tolerating PO. Ambulating. Denies pain. Pt is , reports going well. PO intake tolerated: yes Flatus: yes Ambulation: yes Vital Signs (12 hours) Temp Pulse Resp BP Pulse Ox 10/08/18 05:30 98.2 F 75 18 127/61 10/07/18 20:28 97.7 F 86 20 114/61 98 Weight Weight 127.913 kg - Physical Examination General: NAD Cardiovascular: no m/r/g, RRR Respiratory: clear to auscultation bilaterally, non-labored breathing Abdominal: + bowel sounds, appropriately TTP Neurological: no gross focal deficits Psychiatric: A&Ox3, normal affect Result Diagrams: 10/05/18 22:54 Additional Labs: Post Labs Blood Type O POSITIVE 10/05/18 22:54 Hep Bs Antigen Non-Reactive S/CO (NonReactive) 10/05/18 22:54 (1) Chlamydia infection affecting Code(s): O98.819 - OTH MATERNAL INFEC/PARASTC DISEASES COMP PREG, UNSP TRI; A74.9 - CHLAMYDIAL INFECTION, UNSPECIFIED Status: Acute (2) Obesity affecting Code(s): O99.210 - OBESITY COMPLICATING , UNSPECIFIED TRIMESTER Status: Acute (3) Hypertension affecting in third trimester Code(s): O16.3 - UNSPECIFIED MATERNAL HYPERTENSION, THIRD TRIMESTER Status: Acute (4) with complication, delivered Code(s): O26.90 - RELATED CONDITIONS, UNSP, UNSPECIFIED TRIMESTER Status: Acute - Assessment/Plan 17yo delivered TAGA female at 2108 on 10/06 at 39.2wk by LMP and 9.1wk US Term sIUP, IOL for cHTN and Obesity, delivered - PPD #2 - Denies pain - Pt , came by yesterday - Meeting PP milestones - Desires depo for PP contraception Chlamydia infection - Positive on 09/29/18 - Tx'ed with Azithromycin 10/06 - Supervisor Pastry on importance of close follow up outpt for signs conjunctivitis and pneumonia in cHTN: Highest pressure 136/91. Continue to monitor. Pre-E workup neg x2 in clinic. No symptoms of pre-E. BMI 41: Wt has been stable during 3T. 12lb wt gain this Anemia of : Hgb 10.6 Teen Addendum - Attending - Attending Attestation Date/Time: 10/08/18 1052 I personally evaluated the patient and discussed the management with Dr. Vasquez I agree with the History, Examination, Assessment and Plan documented above with any addition or exceptions noted below. Stable for d/c to home today.
[2018-10-08 07:38] VITALS: BP 116/65; TEMP 98.5
[2018-10-08] MEDS: Ferrous Sulfate 325 MG TAB PO SCH (08:49)
[2018-10-08] MEDS: Docusate Calcium (SURFAK) 240 MG CAP PO SCH (08:50)
== END 2018-10-08 13:00 | disposition home or self-care (01) | DRG 806 ==
LOC: L&D 10-05 21:47 → 3SW 10-07 00:15
PROVIDERS: ADMIT Family Medicine; ATTEND Family Medicine
PROC: 10E0XZZ Delivery of Products of Conception, External Approach (ICD-10-PCS; principal; 2018-10-06)
PROC: 0UQMXZZ Repair Vulva, External Approach (ICD-10-PCS; 2018-10-06)
DX: O98.813 Other maternal infectious and parasitic diseases complicating pregnancy, third trimester (principal); O10.92 Unspecified pre-existing hypertension complicating childbirth; Z37.0 Single live birth; O99.354 Diseases of the nervous system complicating childbirth; A74.9 Chlamydial infection, unspecified; O99.02 Anemia complicating childbirth; D64.9 Anemia, unspecified; G43.909 Migraine, unspecified, not intractable, without status migrainosus; O99.214 Obesity complicating childbirth; E66.9 Obesity, unspecified; Z3A.39 39 weeks gestation of pregnancy; Z87.891 Personal history of nicotine dependence; O71.82 Other specified trauma to perineum and vulva
CPT/HCPCS: 36416; 51702; 85027; 86780; 86850; 86900; 86901; 87340; J0595; J0670; J2405; J3010; S0020

== ENCOUNTER 2019-04-13 16:40 | Emergency (ER) | payer OTHER ==
[2019-04-13] MEDS ORDERED: Azithromycin 250 MG TAB ONE (17:07)
[2019-04-13] MEDS ORDERED: cefTRIAXone\\ROCEPHIN 250 MG VIAL ONE (17:07)
[2019-04-13] MEDS ORDERED: Lidocaine 1% PF 5 ML VIAL ONE (17:08)
[2019-04-13 17:33] LABS: Bilirubin Negative (Negative); Blood, Urine Negative (Negative); Clarity Clear (Clear); Glucose, Urine (Dipstick) Normal (Negative); Leukocyte Negative Leu/uL (Negative); Nitrite Negative (Negative); Pregnancy Test - Urine (BHCG) Negative (Negative); Pregu Control Background? CLEAR/WHITE (CLR/WHITE); Pregu Control Bar Appear? YES (CONTROL BAR); Protein, Urine (Dipstick) 20 mg/dL (Neg-Trace); Urobilinogen Normal mg/dL (Less than 2)
[2019-04-13 17:34] LABS: Bacteria/HPF 1+ HPF (None Seen)
== END 2019-04-13 17:48 | disposition home or self-care (01) ==
LOC: ERS 16:40
DX: R30.0 Dysuria (principal); G43.909 Migraine, unspecified, not intractable, without status migrainosus; Z20.2 Contact with and (suspected) exposure to infections with a predominantly sexual mode of transmission
CPT/HCPCS: 81003; 81025; 96372; 99283; J0696; J2001

== ENCOUNTER 2019-05-04 16:49 | Emergency (ER) | payer MEDICAID ==
[2019-05-04 17:10] LABS: Bilirubin Negative (Negative); Blood, Urine Negative (Negative); Clarity Clear (Clear); Glucose, Urine (Dipstick) Normal (Negative); Leukocyte Negative Leu/uL (Negative); Nitrite Negative (Negative); Protein, Urine (Dipstick) Negative (Neg-Trace); Urobilinogen Normal mg/dL (Less than 2)
[2019-05-04 17:15] LABS: #Basophils 0.1 thou/uL (0.0-0.2); #Eosinphils 0.4 thou/uL (0.0-0.7); #Lymphocytes 3.9 thou/uL (1.20-3.40); #Monocytes 0.9 thou/uL (0.11-0.59); #Neutrophils 7.3 thou/uL (1.40-6.50); %Basophils 0.8 % (0.0-1.0); %Eosinophils 3.1 % (0.0-10.0); %Lymphocytes 30.8 % (28.0-48.0); %Monocytes 7.4 % (0.0-4.0); %Neutrophils 57.9 % (31.0-61.0); Hemoglobin 12.3 g/dL (12.0-16.0); Mean Corpuscular HGB CONC 33.9 g/dL (32.0-36.0); Mean Corpuscular Hemoglobin 30.4 pg (25.0-35.0); Mean Corpuscular Volume 89.5 fL (78.0-98.0); Mean Platelet Volume 6.8 fL (7.4-10.4); Platelet Count 426 thou/uL (130-400); RBC Distribution Width 13.8 % (11.5-14.5); Red Blood Cell (RBC) Count 4.04 mill/uL (4.00-5.20); White Blood Cell (WBC) Count 12.6 thou/uL (4.8-10.8)
[2019-05-04 17:17] LABS: Pregnancy Test - Urine (BHCG) Indeterminate (Negative); Pregu Control Background? CLEAR/WHITE (CLR/WHITE); Pregu Control Bar Appear? YES (CONTROL BAR); Specific Gravity 1.023 (1.002-1.036)
[2019-05-04 17:36] LABS: BHCG - Serum POSITIVE (NEGATIVE); Pregs Control Background? CLEAR/WHITE (CLR/WHITE); Pregs Control Bar Appear? YES (CONTROL BAR)
[2019-05-04 17:43] LABS: ALT (SGPT) 12 U/L (8-55); AST (SGOT) 12 U/L (5-34); Albumin 4.2 g/dL (3.5-5.0); Alkaline Phosphatase 90 U/L (40-100); Anion Gap 15 mmol/L (10-20); BUN (Urea Nitrogen) 13 mg/dL (7.0-18.7); Bilirubin, Total 0.3 mg/dL (0.2-1.2); Calc. Creatinine Clearance 0 mL/min (70-130); Calcium 9.2 mg/dL (7.8-10.44); Carbon Dioxide 22 mmol/L (22-29); Chloride 104 mmol/L (98-107); Estimated GFR-MDRD Greater than 90; Glucose 99 mg/dL (70-105); Lipase 23 U/L (8-78); Potassium 3.9 mmol/L (3.5-5.1); Protein, Total 7.2 g/dL (6.0-8.3); Sodium 137 mmol/L (136-145)
== END 2019-05-04 18:27 | disposition home or self-care (01) ==
LOC: ERS 16:49
DX: O21.9 Vomiting of pregnancy, unspecified (principal); O99.351 Diseases of the nervous system complicating pregnancy, first trimester; G43.909 Migraine, unspecified, not intractable, without status migrainosus; O99.331 Smoking (tobacco) complicating pregnancy, first trimester; F17.210 Nicotine dependence, cigarettes, uncomplicated
CPT/HCPCS: 36415; 80053; 81003; 81025; 83690; 84703; 85025; 99284

== ENCOUNTER 2019-08-18 11:51 | Day surgery (SDC) | payer MEDICAID, SELFPAY ==
[2019-08-18 12:31] VITALS: BP 135/69; TEMP 97.9; BMI 45.6
[2019-08-18] MEDS ORDERED: hydrALAZINE 20 MG/ML VIAL SLOW IVP PRN (12:37)
[2019-08-18 13:22] LABS: Medtox Reader # READER 4; Phencyclidine (PCP) Not Detected (NotDetected); THC/Cannabinoid Screen Not Detected (NotDetected)
[2019-08-18 13:22] LABS: Hemoglobin 11.1 g/dL (12.0-16.0); Mean Corpuscular HGB CONC 34.7 g/dL (32.0-36.0); Mean Corpuscular Hemoglobin 32.3 pg (25.0-35.0); Mean Corpuscular Volume 92.9 fL (78.0-98.0); Mean Platelet Volume 7.3 fL (7.4-10.4); Platelet Count 346 thou/uL (130-400); RBC Distribution Width 12.5 % (11.5-14.5); Red Blood Cell (RBC) Count 3.44 mill/uL (4.00-5.20); White Blood Cell (WBC) Count 13.6 thou/uL (4.8-10.8)
[2019-08-18 13:23] LABS: Amphetamine Not Detected (NotDetected); Barbiturates Screen Not Detected (NotDetected); Benzodiazepine Screen Not Detected (NotDetected); Cocaine Metabolite Screen Not Detected (NotDetected); Medtox Control Line Valid? VALID (VALID); Methadone Not Detected (NotDetected); Methamphetamine Not Detected (NotDetected); Opiate Screen Not Detected (NotDetected); Oxycodone Screen Not Detected (NotDetected); Tricyclic Screen Not Detected (NotDetected)
--- NOTE | 2019-08-18 13:49 | PDOC.EVN ---
Event Note - Event Note Event Note: patient left ama after blood draw and before sonogram after hearing heartbeat. vital signs were stable. encouraged to get care and take baby asa daily due to history of chtn and taking it last . encouraged to fu at [facility] or pnc or fpr
[2019-08-18 14:04] LABS: HBSAB Concentration 0.26 mIU/mL; HIV (1/2) Antibody/Antigen Non-Reactive (NonReactive); HIV 1/2 INDEX 0.14 S/CO (<1.00); Hep B Surf AB Non-Reactive (NonReactive); Syphilis Antibody Nonreactive (Nonreactive); Syphilis Antibody Index 0.03 S/CO (<1.00 Non-Reactive)
--- NOTE | 2019-08-18 14:40 | ULT ---
OB ULTRASOUND: 08/18/19 HISTORY: Size and dates. No care. Real time imaging of the pelvis shows a single viable intrauterine which is in a breech pre sentation. The placenta is more posterior in location. No previa. heart rate is 143 beats per minute. The cervical canal length is difficult to assess. Review of anatomy showed a normal appearing spine, kidneys, three vessel cord, brain, four josue sean heart, cord insertion, and face. No abnormalities detected. Measurements are as follows: BPD 4.3 cm 18 weeks, 6 days Head circumference 16.3 cm 19 weeks, 1 day Abdominal circumference 13.5 cm 19 weeks, 0 days Femur length 2.9 cm 18 weeks, 6 days IMPRESSION: 1. Single viable intrauterine in a breech presentation. Overall measurements correspon ding to 19 weeks, 0 day. Estimated date of delivery 01/12/2020. 2. Placenta which is posterior in location without evidence of previa. POS: TPC
== END 2019-08-18 13:35 | disposition left against medical advice (07) ==
LOC: L&D/OP 11:51
PROVIDERS: ATTEND Obstetrics & Gynecology
DX: O36.8120 Decreased fetal movements, second trimester, not applicable or unspecified (principal); O10.912 Unspecified pre-existing hypertension complicating pregnancy, second trimester; Z3A.19 19 weeks gestation of pregnancy; Z88.8 Allergy status to other drugs, medicaments and biological substances; Z53.29 Procedure and treatment not carried out because of patient's decision for other reasons
CPT/HCPCS: 36415; 76805; 80306; 85027; 86706; 86762; 86780; 86850; 86900; 86901; 87389

== ENCOUNTER 2019-10-17 16:21 | Emergency (ER) | payer OTHER ==
[2019-10-17 17:15] LABS: #Eosinphils 0.3 thou/uL (0.0-0.7); #Lymphocytes 3.3 thou/uL (1.20-3.40); #Monocytes 1.1 thou/uL (0.11-0.59); #Neutrophils 10.2 thou/uL (1.40-6.50); %Basophils 0.2 % (0.0-1.0); %Eosinophils 2.3 % (0.0-10.0); %Lymphocytes 22.1 % (28.0-48.0); %Monocytes 7.1 % (0.0-4.0); %Neutrophils 68.3 % (31.0-61.0); Hemoglobin 10.5 g/dL (12.0-16.0); Mean Corpuscular HGB CONC 34.9 g/dL (32.0-36.0); Mean Corpuscular Hemoglobin 32.2 pg (25.0-35.0); Mean Corpuscular Volume 92.4 fL (78.0-98.0); Platelet Count 368 thou/uL (130-400); RBC Distribution Width 12.2 % (11.5-14.5); Red Blood Cell (RBC) Count 3.26 mill/uL (4.00-5.20)
--- NOTE | 2019-10-17 17:27 | RAD ---
SINGLE VIEW OF THE CHEST: Comparison: None. History: Cough with vomiting, migraine headache. FINDINGS: Single view of the chest shows a normal sized cardiomediastinal silhouette. There is no evidence of c onsolidation, mass, or pleural effusion. The bones are unremarkable. IMPRESSION: No evidence of acute cardiopulmonary disease. POS: EAA
[2019-10-17 17:44] LABS: ALT (SGPT) 21 U/L (8-55); AST (SGOT) 12 U/L (5-34); Albumin 3.3 g/dL (3.5-5.0); Alkaline Phosphatase 102 U/L (40-100); Anion Gap 13 mmol/L (10-20); BUN (Urea Nitrogen) 6 mg/dL (7.0-18.7); Bilirubin, Total 0.2 mg/dL (0.2-1.2); Calc. Creatinine Clearance 0 mL/min (70-130); Calcium 9.1 mg/dL (7.8-10.44); Carbon Dioxide 22 mmol/L (22-29); Chloride 105 mmol/L (98-107); Estimated GFR-MDRD Greater than 90; Globulin 3.2 g/dL (2.4-3.5); Glucose 73 mg/dL (70-105); Potassium 3.7 mmol/L (3.5-5.1); Protein, Total 6.5 g/dL (6.0-8.3); Sodium 136 mmol/L (136-145)
== END 2019-10-17 18:24 | disposition home or self-care (01) ==
LOC: ERS 16:21
DX: O99.89 Other specified diseases and conditions complicating pregnancy, childbirth and the puerperium (principal); R05 Cough; Z87.891 Personal history of nicotine dependence; Z3A.28 28 weeks gestation of pregnancy
CPT/HCPCS: 36415; 71045; 80053; 83605; 85025

== ENCOUNTER 2020-01-03 14:42 | Day surgery (SDC) | payer OTHER ==
[2020-01-03 15:10] VITALS: BP 122/76; TEMP 98.5
[2020-01-03 15:11] VITALS: BMI 45.9
[2020-01-03] MEDS ORDERED: hydrALAZINE 20 MG/ML VIAL SLOW IVP PRN (16:56)
--- NOTE | 2020-01-03 17:11 | PDOC.FPROB ---
FMR OB H&P: HPI - History of Present Illness Chief Complaint: Chronic HTN History of Present Illness: Patient is a 19 year old @ 38.5 weeks by 19 week US, ANNITA 01/12/2020, with a history of cHTN, obesity, Intermittent care, Hx chlamydia (2018 ) who was sent to the hospital due to elevated bps in the office today of 149/90 , repeat 138/97. Patient notes that she doesn't check her bps at home and she is on no home medication. She notes she has had dizziness x 2 weeks, and headaches x 3 weeks, and has not taken any medication for pain. She denies CP, SOB, upper abdominal pain, vision changes, LE edema, and fever. Patient was seen last week in the clinic and had a bp of 145/93 and had orders to get all of her lab work done since her last visit was her first care visit in June. She notes she is homeless and was unable to come in. Patients last was an induction of labor at 39.2 weeks in 2019 due to chronic HTN, no complications, no Pre E or E. Patient denies alcohol, drugs or smoking. Menarche was at age 10 and LM was 03/20/2019. Primary Care Physician: Michelle Vasquez MD [facility] H&P: Current - Care : 2 Para: 1001 Gestational age: 38.5 Due date: 01/12/2020 Dating Criteria: 19 WEEK US - OB Labs Blood type: unknown RH: unknown Antibody Screen: unknown HIV: unknown RPR: unknown HepBsAg: unknown Quad screen: unknown Urine drug screen: not done Gonorrhea: unknown Chlamydia: unknown GBS: unknown - First Trimester Ultrasound First trimester: US at 19 weeks, dating and anatomy FMR OB H&P: History - Past Medical History PMH: Obesity, cHTN, Hx chlamydia (2019), Intermittent Care - OB History OB History: 2019, IOL for cHTN @39.2, no complications - 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 Notes she has been homeless. - Family History Family History: unknown - patient adopted FMR OB H&P: Medications - Current Home Medications: Medication Instructions Recorded Confirmed Type Vitamin 1 tablet PO DAILY 01/03/20 01/03/20 History Allergies/Adverse Reactions: Allergies Allergy/AdvReac Type Severity Reaction Status Date / Time grass pollen-perennial rye, Allergy Verified 09/17/19 05:13 standar lavender (Lavandula Allergy Verified 09/17/19 05:13 angustifolia) FMR OB H&P: ROS - Review of Systems General: denies: fever/chills, night sweats Eyes: denies: eye pain, vision changes, double vision ENT: denies: ringing in ears, sore throat Cardiovascular: denies: chest pain, edema Respiratory: denies: cough, shortness of breath Gastrointestinal: reports: other (pelvic pressure). denies: abdominal pain Genitourinary (Female): denies: incontinence, dysuria, hematuria, vaginal discharge, vaginal bleeding Musculoskeletal: denies: redness, swelling Neurologic: reports: headache, other (dizziness). denies: syncope, seizures, loss of counsciousness Integumentary: denies: itching, rash Breast: denies: lumps, bumps Endocrine: denies: cold intolerance, polyuria Hematologic/Lymphatic: denies: prolonged or excessive bleeding, enlarged lymph nodes Psychological: denies: depression, anxiety FMR OB H&P: Vital Signs - Maternal Vital signs: Vital Signs - First Documented Temp Pulse Resp BP 98.5 F 115 H 18 122/76 01/03/20 14:49 01/03/20 14:49 01/03/20 14:49 01/03/20 14:49 - Heart Tones Baseline: 140 Variability: moderate Acceleration: present Deceleration: absent Category: category 1 [place] contractions every: none FMR OB H&P: Physical Exam - Physical Exam General: NAD, awake, alert and oriented HEENT: normocephalic and atraumatic, PERRLA, EOMI Neck: supple, FROM, trachea midline Chest: no lesions Heart: RRR, pulses present, no edema General: CTAB Abdomen: soft, gravid Musculoskeletal: pulses present, FROM in all four extremities Neurological: DTR +2, strength +2, no tremor, no focal deficit Skin: no rash, good tugor Lymphatic: no unusual bruising or bleeding Psychiatric: good judgement and insight, normal mood and affect - Pelvic Exam Vulva: normal hair distribution SVE: 2/0/-3 Membranes: intact FMR OB H&P: A/P - Problem List (1) Chlamydia infection affecting Status: Acute Code(s): O98.819 - OTH MATERNAL INFEC/PARASTC DISEASES COMP PREG , UNSP TRI; A74.9 - CHLAMYDIAL INFECTION, UNSPECIFIED (2) Hypertension affecting in third trimester Status: Acute Code(s): O16.3 - UNSPECIFIED MATERNAL HYPERTENSION, THIRD TRIMESTER (3) Obesity affecting Status: Acute Code(s): O99.210 - OBESITY COMPLICATING , UNSPECIFIED TRIMESTER Discussion: Date/Time: 01/03/20 171 Patient is a 19 yo @ 38.5 weeks by 19 week US Hx of cHTN, here for PrE Workup. 1) cHTN - Previous bps 140/93 12/28 and 149/90 today, currently 120s-130s/70s-80s - no home medications - IOL in 2019 d/t cHTN @39.2, no PreE/E - Hydralazine PRN - R/o superimposed pre-eclampsia with labs: CBC/CMP, uric acid, urine protein/Cr , Creatinine - BPP and US for growth - Backup induction scheduled for 01/04 - COVID swabbed, for induction, pending - GBS negative - Discussed with patient possibility of induction tonight, pending workup 2) Hx Obesity BMI 45.9 - previous baby 8lb 2 oz at - GTT not done 3) Intermittent Care No f/u care after initial visit until 37 weeks. Patient was previously homeless - ordered labs - Added UDS 4) Hx Chlamydia - 2018 - labs ordered This H&P was discussed with Dr. Matamoros and Dr. Judge who agree with the above documentation and plan. Addendum - Attending - Attending Attestation Date/Time: 01/03/20 1850 I personally evaluated the patient and discussed the management with Dr. Diaz and Dr. Matmaoros I agree with the History, Examination, Assessment and Plan documented above with any addition or exceptions noted below. 19 yo female at 38.5 wks by 19.0 wk sono presents for L&D triage due to elevated BP Patient has a hx of cHTN. Has been largely untreated since dx. Currently not on medication. Incomplete care. Initial OB in June with 1st return visit last week. Not on preE ppx. Denies symptoms but reports symptoms of intermittent dizziness and intermittent headaches over the past 2 to 3 wks. - BPs reviewed in medical records and remain stable. - No home monitoring - Normotensive since arrival - FHT reactive. No ctx. - sIUP: IOB labs ordered and collected. Anatomy reviewed. Unsure last pap. Will need to be done pp period as indicated. GC/CT negative. - Incomplete care: Growth sono ordered. Labs ordered. - cHTN: Rule out supreimposed preE. Currently without symptoms. BP normotensive. Labs pending. BPP ordered. Growth ordered. Requires induction. If unable to find evidence for admission unable to induce tonight due to scheduling conflicts. Scheduled for 01/05/20 if discharged. Will need strict precautions. - BMI 46: NST reactive. Growth and BPP pending. IOL for 01/05/20 if not kept for delivery tonight. - strict ER precautions needed of discharged Patient checked out to [facility], who will determine remainder course of care. Sung
[2020-01-03 18:09] LABS: #Eosinphils 0.3 thou/uL (0.0-0.7); #Lymphocytes 2.8 thou/uL (1.20-3.40); #Neutrophils 12.1 thou/uL (1.40-6.50); %Basophils 0.1 % (0.0-1.0); %Eosinophils 1.8 % (0.0-10.0); %Lymphocytes 16.9 % (21.0-51.0); %Monocytes 6.3 % (0.0-10.0); %Neutrophils 74.9 % (42.0-75.0); Hemoglobin 10.2 g/dL (12.0-16.0); Mean Corpuscular Hemoglobin 29.7 pg (27.0-31.0); Mean Corpuscular Volume 89.8 fL (78.0-98.0); Mean Platelet Volume 6.9 fL (7.4-10.4); Platelet Count 453 thou/uL (130-400); RBC Distribution Width 13.6 % (11.5-14.5); Red Blood Cell (RBC) Count 3.44 mill/uL (4.20-5.40); White Blood Cell (WBC) Count 16.2 thou/uL (4.8-10.8)
[2020-01-03 18:17] LABS: Hemoglobin A1c 5.3 % (4.0-6.0)
[2020-01-03 18:28] LABS: ALT (SGPT) 16 U/L (8-55); AST (SGOT) 8 U/L (5-34); Albumin 3.3 g/dL (3.5-5.0); Alkaline Phosphatase 146 U/L (40-110); Anion Gap 14 mmol/L (10-20); BUN (Urea Nitrogen) 7 mg/dL (7.0-18.7); Bilirubin, Total 0.4 mg/dL (0.2-1.2); Calc. Creatinine Clearance 332 mL/min (70-130); Carbon Dioxide 21 mmol/L (22-29); Chloride 104 mmol/L (98-107); Estimated GFR-MDRD Greater than 90; Globulin 3.4 g/dL (2.4-3.5); Glucose 75 mg/dL (70-105); Potassium 4.3 mmol/L (3.5-5.1); Protein, Total 6.7 g/dL (6.0-8.3); Sodium 135 mmol/L (136-145); Uric Acid 3.8 mg/dL (2.6-6.0)
[2020-01-03 18:32] LABS: Amphetamine Not Detected (NotDetected); Barbiturates Screen Not Detected (NotDetected); Benzodiazepine Screen Not Detected (NotDetected); Cocaine Metabolite Screen Not Detected (NotDetected); Medtox Control Line Valid? VALID (VALID); Medtox Reader # READER 4; Methadone Not Detected (NotDetected); Methamphetamine Not Detected (NotDetected); Opiate Screen Not Detected (NotDetected); Oxycodone Screen Not Detected (NotDetected); Phencyclidine (PCP) Not Detected (NotDetected); THC/Cannabinoid Screen Not Detected (NotDetected); Tricyclic Screen Not Detected (NotDetected)
[2020-01-03 18:46] LABS: Syphilis Antibody Nonreactive (Nonreactive); Syphilis Antibody Index 0.03 S/CO (<1.00 Non-Reactive)
[2020-01-03 18:46] LABS: Creatinine, Urine 165.33 mg/dL (47-110)
--- NOTE | 2020-01-03 18:47 | ULT ---
ULTRASOUND OBSTETRICAL COMPLETE: 01/03/20 HISTORY: 19-year-old female in third trimester of . Evaluate growth. FINDINGS: tone: 2 breathin movement: 2 Amniotic fluid: 2 IMPRESSION: Biophysical profile score: 6 out of 8, excluding the nonstress test POS: JIN
[2020-01-03 18:59] LABS: HIV (1/2) Antibody/Antigen Non-Reactive (NonReactive); HIV 1/2 INDEX 0.22 S/CO (<1.00); Hep B Surf Ag Non-Reactive S/CO (NonReactive); Hep C IgG Ab Non-Reactive (NonReactive); Hep C Index 0.07 S/CO (0-0.79); Thyroid Stimulating Hormone 0.9059 uIU/mL (0.35-4.94)
--- NOTE | 2020-01-03 19:00 | ULT ---
ULTRASOUND OBSTETRICAL LIMITED DOPPLER DUPLEX UMBILICAL ARTERY: 01/03/20 HISTORY: 19-year-old female in third trimester of . Evaluate growth. Jack Strip Assembler note states that she verbally gave the report to L&D nurse, Rhea prior to this dictat ion. TECHNIQUE: Faye scale images of intrauterine contents. Color flow and spectral analysis of umbilical artery. FINDINGS: number: [place]. lie: Vertex. Maternal cervix: Obscured. Placenta: Posterior. No placenta previa. Amniotic fluid volume: AVEL=21 cm. heart rate: 145 bpm anatomy not evaluated. biometry: Head circumference (HC): 34.3 cm 39w 4d Biparietal diameter (BPD): 9.6 cm 29w 1d Abdominal circumference (AC): 35.2 cm 39w 1d Femur length (FL): 7.4 cm 38w 0d Average ultrasound age (AUA): 39w 0d Estimated date of delivery (ANNITA): 01/10/2020 Last menstrual period (LMP): 04/07/2019 Gestational age by LMP: 38w 5d Estimated weight (EFW): 3644 g +/- 539 g (8 lb. 1 oz +/- 19 oz). UMBILICAL ARTERY DOPPLER: PEAK SYSTOLIC VELOCITY END DIASTOLIC VELOCITY S/D RATIO At cord insertion: 71 cm/s 38.9 cm/s 1.82 At mid: 111.5 cm/s 48.2 cm/s 2.31 At placenta: 82.1 cm/s 36.3 cm/s 2.26 IMPRESSION: 1. Live third trimester intrauterine gestation. 2. Estimated gestational age of 39 weeks, 0 days. 3. Cephalic lie. 4. Umbilical artery Doppler S/D ratios as above. 5. Biophysical profile score of 6 out of 8. See separate report. 6. AVEL = 21 cm. MARIA G Ruiz POS: ISABELLE
--- NOTE | 2020-01-03 19:59 | PDOC.BPN ---
- Brief Progress Note S: 19 yo who was experiencing elevated BPs in clinic, here for pre- eclampsia rule out. Patient is feeling well. She denies headache, swelling, RUQ pain, CP, SOB, or vision changes. She is feeling baby move and does not feel contractions. She endorses light headedness but notes she has not eaten since 9: 30 this morning. O: 2/0/-3 @ 1610 7/6 130/mod/+accel/no decels @1945 BPs: 129/72, 141/91 @1739 (cuff was on elbow), 133/66, 132/82, 122/73 Ultrasound: 3644g, 39w, AVEL: 20.9cm, BPP: 6/8 (breathing) vertex, posterior placenta H/H: 10.2, 30.9 urine protein/Cr: 0.09 AST: 8, ALT: 16, Cr: 0.58, plt: 453 PE: NAD no respiratory distress no LE edema A: Patient is not exhibiting any features of pre-eclampsia at this time. Her BPs and labs are wnl. P: Given diet. Discharge home. Return 01/04 for induction.
[2020-01-04 12:51] LABS: SARS-CoV-2 MS2 Positive; SARS-CoV-2 N Gene Negative; SARS-CoV-2 S Gene Negative; SARS-CoV-2 orf1ab Negative
== END 2020-01-03 20:00 | disposition home or self-care (01) ==
LOC: L&D/OP 14:42
PROVIDERS: ATTEND Student in an Organized Health Care Education/Training Program
DX: O13.3 Gestational [pregnancy-induced] hypertension without significant proteinuria, third trimester (principal); O99.213 Obesity complicating pregnancy, third trimester; E66.9 Obesity, unspecified; Z3A.38 38 weeks gestation of pregnancy; Z91.09 Other allergy status, other than to drugs and biological substances
CPT/HCPCS: 36415; 76815; 76819; 80053; 80306; 82570; 83036; 84156; 84443; 84550; 85025; 86762; 86780; 86803; 86850; 86900; 86901; 87340; 87389; 87635; 93975; 99285; U0003

== ENCOUNTER 2020-01-05 19:30 | Inpatient (IN) | payer OTHER ==
[2020-01-05] MEDS: Lactated Ringer's 1,000 ML IV SCH (22:44)
[2020-01-05 22:50] VITALS: BMI 45.7
[2020-01-05] MEDS ORDERED: NS / Oxytocin 40 units/1000ml 1,000 ML IV PRN (23:36)
[2020-01-05] MEDS ORDERED: Ibuprofen 800 MG TAB PO PRN (23:36)
[2020-01-05] MEDS ORDERED: Lidocaine 1% (PF) 30 ML VIAL SC PRN (23:36)
[2020-01-05] MEDS ORDERED: Methylergonovine 0.2 MG/ML VIAL IM PRN (23:36)
[2020-01-05] MEDS ORDERED: Carboprost 250 MCG/ML AMP IM PRN (23:36)
[2020-01-05] MEDS ORDERED: hydrALAZINE 20 MG/ML VIAL SLOW IVP PRN (23:36)
[2020-01-05] MEDS ORDERED: Ondansetron PF 4 MG/2 ML Vial IVP PRN (23:36)
[2020-01-05] MEDS ORDERED: Misoprostol 200 MCG TAB PR PRN (23:36)
[2020-01-05] MEDS ORDERED: Butorphanol Tartrate 1 MG/ML VIAL SLOW IVP PRN (23:36)
[2020-01-05] MEDS ORDERED: Promethazine HCl 25 MG/ML VIAL IM PRN (23:36)
[2020-01-05] MEDS ORDERED: NS w/ Oxytocin 10 units 500 ML IV SCH (23:45)
--- NOTE | 2020-01-05 23:49 | PDOC.FPROB ---
FMR OB H&P: HPI - History of Present Illness Chief Complaint: induction of labor History of Present Illness: 19 yo at 39 wks by 19wk US with a history of chronic hypertension here for an medical induction of labor. Ms. Milligan is feeling well today and is feeling the baby move. She denies any bleeding, leakage of fluid, vaginal discharge or pain with urination. She denies headache, vision changes, fever, chills, cough, CP, SOB. She denies contractions but says she is feeling vaginal pressure and intermittent pain in her back that sometimes shoots up to her neck. 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 Notes she has been homeless. Patient's fiance with her. - Family History Family History: unknown - patient adopted FMR OB H&P: Medications - Current Home Medications: Medication Instructions Recorded Confirmed Type Vitamin 1 tablet PO DAILY 01/03/20 01/05/20 History Allergies/Adverse Reactions: Allergies Allergy/AdvReac Type Severity Reaction Status Date / Time grass pollen-perennial rye, Allergy Verified 01/05/20 22:53 standar lavender (Lavandula Allergy Verified 01/05/20 22:53 angustifolia) FMR OB H&P: ROS - Review of Systems General: denies: fever/chills Eyes: denies: vision changes, double vision ENT: denies: nasal congestion, sore throat Cardiovascular: denies: chest pain, palpitation, edema Respiratory: denies: cough, congestion, shortness of breath Gastrointestinal: denies: nausea, vomiting, diarrhea Genitourinary (Female): reports: vaginal pressure. denies: dysuria, vaginal discharge, vaginal bleeding, contractions Integumentary: denies: rash FMR OB H&P: Vital Signs - Maternal Vital signs: BP 136/82 P 103 - Heart Tones Baseline: 150 Variability: moderate Acceleration: absent Deceleration: absent Category: category 1 FMR OB H&P: Physical Exam - Physical Exam General: NAD, awake, alert and oriented HEENT: normocephalic and atraumatic, EOMI, grossly normal hearing Heart: RRR, no murmurs/rubs/gallops, pulses present, no edema General: CTAB, no respiratory distress, good air movement Abdomen: gravid Musculoskeletal: FROM in all four extremities Neurological: sensation to pain,touch and proprioception grossly normal Psychiatric: intact recent and remote memory, good judgement and insight, normal mood and affect - Pelvic Exam Vulva: normal hair distribution SVE: /-3 Tejeda score: 4 Presentation: vertex FMR OB H&P: A/P Discussion: Date/Time: 01/05/20 2349 19 yo at 39 wks by 19wk US with a history of chronic hypertension here for an medical induction of labor. Induction of Labor SVE @ 1130 /-3 150/mod/+accels/-deccels Tejeda Score 4 Cytotec 25mg given This H&P was discussed with Dr. Ramsey and Dr. Mcqueen who agree with the above documentation and plan.
[2020-01-05 23:59] LABS: Hemoglobin 9.7 g/dL (12.0-16.0); Mean Corpuscular HGB CONC 34.6 g/dL (32.0-36.0); Mean Corpuscular Hemoglobin 30.9 pg (27.0-31.0); Mean Corpuscular Volume 89.3 fL (78.0-98.0); Mean Platelet Volume 7.3 fL (7.4-10.4); Platelet Count 442 thou/uL (130-400); RBC Distribution Width 13.6 % (11.5-14.5); Red Blood Cell (RBC) Count 3.15 mill/uL (4.20-5.40); White Blood Cell (WBC) Count 13.7 thou/uL (4.8-10.8)
[2020-01-06] MEDS: Misoprostol 100 MCG TAB VAG SCH ×3 (00:15→06:11)
[2020-01-06 00:36] LABS: HBSAg Index 0.16 S/CO (0-0.99); Hep B Surf Ag Non-Reactive S/CO (NonReactive)
[2020-01-06 01:04] LABS: Syphilis Antibody Nonreactive (Nonreactive); Syphilis Antibody Index 0.02 S/CO (<1.00 Non-Reactive)
--- NOTE | 2020-01-06 04:54 | PDOC.OBLPN ---
FMR OB Labor PN: Subj - Interval History Chief Complaint: mIOL Interval History: Patient is feeling contractions. FMR OB Labor PN: Obj - Maternal Vital signs: BP: 124/74 HR: 110 140/mod/+accels/-deccels FMR OB Labor PN: Exam - Physical Exam General: NAD, awake, alert and oriented HEENT: normocephalic and atraumatic, EOMI, grossly normal hearing Abdomen: gravid Neurological: sensation to pain,touch and proprioception grossly normal Psychiatric: intact recent and remote memory, good judgement and insight, normal mood and affect - Pelvic Exam SVE: /-3 FMR OB Labor PN: Data - Labs Lab results: Laboratory Results - last 24 hr 01/05/20 01/05/20 01/05/20 23:01 23:01 23:01 WBC RBC Hgb Hct MCV MCH MCHC RDW Plt Count MPV Syphilis IgG/IgM Ab Nonreactive Hep Bs Antigen Non-Reactive Blood Type O POSITIVE Antibody Screen NEGATIVE 01/05/20 23:01 WBC 13.7 H RBC 3.15 L Hgb 9.7 L Hct 28.1 L MCV 89.3 MCH 30.9 MCHC 34.6 RDW 13.6 Plt Count 442 H MPV 7.3 L Syphilis IgG/IgM Ab Hep Bs Antigen Blood Type Antibody Screen FMR OB Labor PN: A/P Discussion: Date/Time: 01/06/20 0453 19 yo at 39 wks by 19wk US with a history of chronic hypertension here for an medical induction of labor. Induction of Labor SVE @ 1130 /-3 @ 1130 on 01/04 150/mod/+accels/-deccels Tejeda Score 4 Cytotec 25mg given @ 0015 on 01/05 /-3 @ 0445 Continue labor protocol This H&P was discussed with [] and [] who agree with the above documentation and plan.
[2020-01-06] MEDS: Lactated Ringer's 1,000 ML IV SCH ×2 (07:40→13:29)
--- NOTE | 2020-01-06 09:09 | PDOC.LDPN ---
Labor & Delivery Progress Note - Subjective Subjective: comfortable, painful contractions - Objective Vital signs reviewed and normal: yes General: NAD, resting Uterine fundus: non tender Dilation: FHT: category 1, variability present [place] contractions every: 2-3 min -: 19 yo at 39.1 wks by 19wk US with a history of chronic hypertension here for an medical induction of labor. Induction of Labor SVE @ 1130 3 @ 1130 on 01/04 Cytotec 25mg given @ 0015 on 01/053 @ 0445 cytotec #2 given at 0607 @ 0945 @11:45 US: vertex, normal appearing AVEL, left lateral placenta FHR cat I, moderate variability, accels, no decels, sabine every 3-4 minutes Patient notes that her contractions are currently 8/ - Placed balloon at 1145 and will start pitocin Chronic HTN - Bps here lowest systolic 106, highest 149, three elevated bps, no severe bps - will continue to monitor Obesity - Young 8.5lb Hx of Chlamydia (2019) - negative 01/03/2020 Will continue labor protocol. Placed balloon and will start pitocin. Addendum - Attending - Attending Attestation Date/Time: 01/06/20 [id number] I personally evaluated the patient and discussed the management with Dr. Diaz I agree with the History, Examination, Assessment and Plan documented above with any addition or exceptions noted below. Balloon placed without difficulty. Start pitocin per protocol. Repeat exam in 4 hours Monitor FHT q 1 hour Sung
[2020-01-06] MEDS ORDERED: Diphenoxylate HCl/Atropine Tablet PO PRN (10:22)
[2020-01-06] MEDS ORDERED: Fentanyl 4 mcg/Bup 0.1% Cadd 100 ML ONE (12:11)
[2020-01-06] MEDS ORDERED: Bupivacaine 0.25% HCL 30 ML VIAL ONE (12:37)
[2020-01-06] MEDS ORDERED: EPHEDRINE 25 MG/5 ML SYRINGE ONE (12:37)
[2020-01-06] MEDS ORDERED: Bupivacaine/Epinephrine 0.25% 30 ML VIAL ONE (12:37)
[2020-01-06] MEDS ORDERED: Dextrose 5%-Lactated Ringers 1,000 ML IV SCH (15:00)
--- NOTE | 2020-01-06 18:33 | PDOC.BPN ---
- Brief Progress Note 19 yo at 39.1 wks by 19wk US with a history of chronic hypertension here for an medical induction of labor. Induction of Labor SVE @ 1130 3 @ 1130 on 01/04 Cytotec 25mg given @ 0015 on 01/053 @ 0445 cytotec #2 given at 0607 3 @ 0945 @11:45 US: vertex, normal appearing AVEL, left lateral placenta - Placed balloon at 1145 and started pitocin - cat I/II, was a cat I, however had a period of minimal variability this afternoon and was started on D5, she then returned to cat I, will continue to titrate pitocin Chronic HTN - Bps here lowest systolic 106, highest 149, three elevated bps, no severe bps - will continue to monitor Obesity - Young 8.5lb Hx of Chlamydia (2018) - negative 01/03/2020 Will continue labor protocol. Balloon placed, will continue to titrate pit and monitor strips and vitals.
[2020-01-06] MEDS: Fentanyl 4 mcg/Bup 0.1% Cadd 100 ML ONE (19:20)
--- NOTE | 2020-01-06 19:56 | PDOC.LDPN ---
Labor & Delivery Progress Note - Subjective Subjective: other (back pain 2/2 epidural) - Objective Vital signs reviewed and normal: yes General: breathing through contractions [place] contractions every: 2 minutes Other exam findings: SROM @ 1920 Resuscitative measures: maternal IV fluids (D5LR), maternal position change - Assessment (1) Chlamydia infection affecting Code(s): O98.819 - OTH MATERNAL INFEC/PARASTC DISEASES COMP PREG, UNSP TRI; A74.9 - CHLAMYDIAL INFECTION, UNSPECIFIED Current Visit: No Status: Acute (2) Encounter for induction of labor Code(s): Z34.90 - ENCNTR FOR SUPRVSN OF NORMAL , UNSP, UNSP TRIMESTER Current Visit: No Status: Acute (3) Hypertension affecting in third trimester Code(s): O16.3 - UNSPECIFIED MATERNAL HYPERTENSION, THIRD TRIMESTER Current Visit: No Status: Acute (4) Obesity affecting Code(s): O99.210 - OBESITY COMPLICATING , UNSPECIFIED TRIMESTER Current Visit: No Status: Acute Plan: resuscitative measures (D5LR) -: 19 yo at 39.1 wks by 19wk US with a history of chronic hypertension here for an medical induction of labor. Term medical Induction of Labor for cHTN SVE @ 1130 /-3 @ 1130 on 01/04 Cytotec 25mg given @ 0015 on 01/05 /-3 @ 0445 cytotec #2 given at 0607 /-3 @ 0945 /-3 @11:45 - Placed balloon at 1145 and started pitocin. Now @ 06-11. SROM @ ~[address] but balloon still in place. Will need to remove if hasn't fallen out by 23:30. - cat I/II since last check. Has been having a period of minimal variability for last ~5 minutes. Still on D5LR so will try maternal position change & scalp stimulation to increase reactivity. Could be sleep cycle. Chronic HTN - SBPs 89-150 since admission. Normal diastolics. - will continue to monitor Obesity - Young 8.5lb Hx of Chlamydia (2019) - negative 01/03/2020 Dispo: Will continue to titrate pit and monitor strips and vitals.
--- NOTE | 2020-01-06 21:19 | PDOC.LDPN ---
Labor & Delivery Progress Note - Subjective Subjective: painful contractions - Objective Abnormal vital signs: Elevated BP x3 since removing balloon but epidural not effective General: other (in significant pain with contractions) Dilation: 5 Effacement: 50% (60% effaced) Station: -1 FHT: category 2, absent or minimal variables (minimal variability) [place] contractions every: 2 minutes Procedures: replacing epidural IUPC placed: yes FSE placed: yes Resuscitative measures: maternal IV fluids, other - Assessment (1) Chlamydia infection affecting Code(s): O98.819 - OTH MATERNAL INFEC/PARASTC DISEASES COMP PREG, UNSP TRI; A74.9 - CHLAMYDIAL INFECTION, UNSPECIFIED Current Visit: No Status: Acute (2) Encounter for induction of labor Code(s): Z34.90 - ENCNTR FOR SUPRVSN OF NORMAL , UNSP, UNSP TRIMESTER Current Visit: Yes Status: Acute (3) Hypertension affecting in third trimester Code(s): O16.3 - UNSPECIFIED MATERNAL HYPERTENSION, THIRD TRIMESTER Current Visit: Yes Status: Chronic (4) Obesity affecting Code(s): O99.210 - OBESITY COMPLICATING , UNSPECIFIED TRIMESTER Current Visit: Yes Status: Chronic Qualifiers: Trimester: third trimester Qualified Code(s): O99.213 - Obesity complicating , third trimester -: 19 yo at 39.1 wks by 19wk US with a history of chronic hypertension here for an medical induction of labor. Term medical Induction of Labor for cHTN -Balloon removed at ~2049 IUPC placed. FSE placement attempted but not picking up FHTs regularly. Will replace after replacing epidural as patient is in signifcant pain w/ contractions. -Persistent cat II strip but no cord palpated on SVE. SVE @ ~2100 60/-1. -Will continue to monitor closely. Chronic HTN - SBPs 89-178 since admission. Severe range SBP during SVE while epidural was not working & patient was screaming. 2 elevated but not severe range pressures since IUPC placement. - Will continue to monitor Obesity - Young 8.5lb Hx of Chlamydia (2019) - negative 01/03/2020 Dispo: Will continue to titrate pit and monitor strip and vitals closely.
[2020-01-06] MEDS ORDERED: Carboprost 250 MCG/ML AMP ONE (23:13)
[2020-01-06] MEDS ORDERED: Methylergonovine 0.2 MG/ML VIAL ONE (23:13)
[2020-01-06] MEDS ORDERED: NS / Oxytocin 40 units/1000ml 0 ML ONE (23:13)
[2020-01-06] MEDS: Misoprostol 200 MCG TAB ONE (23:13)
--- NOTE | 2020-01-07 03:07 | PDOC.OPDEL ---
OB Operative/Delivery Note Delivery Dr/Surgeon: Dr. Braulio Levy Pre-Delivery Diagnosis: medically indicated induction Procedure/Post Delivery Dx: spontaneous vaginal delivery Weeks gestation: 39 (1 day) Anesthesia: epidural - Additional Findings/Plan Placenta delivered: spontaneous Repaired Obstetrical Laceration: none Compilations/Other Findings: Delivering Physician: Dr. Braulio Levy Attending: Dr. Pa Procedure: Spontaneous Vaginal Delivery Anesthesia: epidural EBL: 900 ml Pre-op Diagnosis: 1. Term intrauterine in labor 2. cHTN Post-op Diagnosis: 1. Term intrauterine , delivered 2. same Indications: A 19y/o female presents for medical IOL for cHTN @ 39.1 wks Delivery Note: This is 19yo F -> 2004 @ 39.1wks who delivered a viable F infant at 2306 on 01/06/20. Following an uneventful antepartum course, a vigorous F was delivered over an intact perineum in the occipitoanterior position. Anterior Shoulder and then remainder of the body delivered. No nuchal cord. The head was held down and mouth and nares were bulb suctioned. After delayed cord clamping, cord clamped and cut and cord blood collected. Placenta delivered intact with a 3 vessel cord noted. Fundal massage was performed and the fundus was boggy. Bimanual uterine massage and sweep of clots performed. Vaginal bleeding slowed. 800 mg cytotec was placed and vag bleeding ceased. The uterine fundus was firm. The vagina was inspected and found to be free of lacerations, with a small right periurethral abrasion that was hemostatic. Infant went to nursery in good condition for routine care. Apgars were 9/9 at 1 & 5 minutes, respectively. Patient tolerated delivery well and went to after routine recovery/care. Post delivery plan: routine recovery
[2020-01-07] MEDS ORDERED: Preparation H Ointment 28 GM TUBE PR PRN (03:18)
[2020-01-07] MEDS ORDERED: Milk Of Magnesia 30 ML UDCUP PO PRN (03:18)
[2020-01-07] MEDS ORDERED: NS / Oxytocin 40 units/1000ml 1,000 ML IV SCH (03:18)
[2020-01-07] MEDS ORDERED: Lanolin Ointment 7 GM TUBE TOP PRN (03:18)
[2020-01-07] MEDS ORDERED: hydrALAZINE 20 MG/ML VIAL SLOW IVP PRN (03:18)
[2020-01-07] MEDS ORDERED: Bisacodyl 10 MG SUPP PR PRN (03:18)
[2020-01-07] MEDS ORDERED: Misoprostol 200 MCG TAB PR SCH (03:18)
[2020-01-07] MEDS: Fentanyl 4 mcg/Bup 0.1% Cadd 100 ML ONE (04:53)
[2020-01-07] MEDS: Misoprostol 200 MCG TAB ONE (04:53)
[2020-01-07] MEDS: Lactated Ringer's 1,000 ML IV SCH (04:54)
[2020-01-07] MEDS: Misoprostol 100 MCG TAB VAG SCH ×2 (04:55→04:56)
[2020-01-07] MEDS: Ibuprofen 800 MG TAB PO SCH ×3 (05:40→22:16)
[2020-01-07 06:14] LABS: Hemoglobin 8.4 g/dL (12.0-16.0); Mean Corpuscular HGB CONC 33.6 g/dL (32.0-36.0); Mean Corpuscular Hemoglobin 30.2 pg (27.0-31.0); Mean Corpuscular Volume 89.7 fL (78.0-98.0); Platelet Count 368 thou/uL (130-400); RBC Distribution Width 13.5 % (11.5-14.5); Red Blood Cell (RBC) Count 2.78 mill/uL (4.20-5.40); White Blood Cell (WBC) Count 18.3 thou/uL (4.8-10.8)
--- NOTE | 2020-01-07 07:47 | PDOC.PP ---
Post Progress Note Post Day #: 1 Subjective: Pain controlled with medications. Urinating, catheter has been removed. Has not ambulated yet. Tolerating PO. Reports some dizziness last night but no dizzines/ lightheadedness this morning. Hgb 8.3. Bleeding less than period. PO intake tolerated: yes Flatus: yes Ambulation: yes Vital Signs (12 hours) Temp Pulse Resp BP Pulse Ox 01/07/20 04:20 98.4 F 89 15 110/63 01/07/20 03:20 97.7 F 79 16 121/57 L 97 01/07/20 02:20 98.2 F 73 17 129/71 98 Weight Weight 136.531 kg - Physical Examination General: NAD Cardiovascular: no m/r/g, RRR Respiratory: clear to auscultation bilaterally Abdominal: + bowel sounds Fundus firm & at: below umbilicus Neurological: no gross focal deficits Psychiatric: A&Ox3, normal affect Result Diagrams: 01/07/20 06:00 Additional Labs: Post Labs Blood Type O POSITIVE 01/05/20 23:01 Hep Bs Antigen Non-Reactive S/CO (NonReactive) 01/05/20 23:01 - Assessment/Plan sIUP, delivered - Continue routine PP care - EBL 800, given cytotec [place] after delivery - Hgb: 9.7-> 8.4. Asymptomatic cHTN - BP <140/80. No symptoms of preE - F/u at [facility] in 1 wk Late to [facility]
[2020-01-07] MEDS ORDERED: Ferrous Sulfate 325 MG TAB PO SCH (08:00)
[2020-01-07] MEDS ORDERED: Adacel (T-DAP) 0.5 ML SYRINGE IM ONE (09:00)
[2020-01-07] MEDS: Ferrous Fumarate 324 MG TAB PO SCH (09:48)
[2020-01-07] MEDS: Polyethylene Glycol 3350 17 GM Packet PO SCH (09:49)
[2020-01-07] MEDS: Prenatal Vitamin 1 TAB PO SCH (09:49)
[2020-01-07] MEDS: Docusate Calcium (SURFAK) 240 MG CAP PO SCH ×2 (09:49→22:16)
[2020-01-08] MEDS: Ibuprofen 800 MG TAB PO SCH (05:52)
--- NOTE | 2020-01-08 08:38 | PDOC.PP ---
Post Progress Note Post Day #: 2 Subjective: Pain well controlled. Breast and bottle feeding. Tolerating PO and ambulating. Lochia less than a period. Denies KELLY, edema or vision changes. PO intake tolerated: yes Flatus: yes Ambulation: yes Weight Weight 136.531 kg - Physical Examination General: NAD Cardiovascular: no m/r/g, RRR Respiratory: clear to auscultation bilaterally, non-labored breathing Abdominal: + bowel sounds, appropriately TTP Neurological: no gross focal deficits Psychiatric: A&Ox3, normal affect Result Diagrams: 01/07/20 06:00 Additional Labs: Post Labs Blood Type O POSITIVE 01/05/20 23:01 Hep Bs Antigen Non-Reactive S/CO (NonReactive) 01/05/20 23:01 - Assessment/Plan sIUP, delivered - Meeting PP milestones - EBL 800, given cytotec [place] after delivery - Hgb: 9.7-> 8.4. Asymptomatic cHTN - BP <140/80. No symptoms of preE - F/u at [facility] in 1 wk Late to [facility]
[2020-01-08] MEDS: Docusate Calcium (SURFAK) 240 MG CAP PO SCH (08:42)
[2020-01-08] MEDS: Ferrous Fumarate 324 MG TAB PO SCH (08:42)
[2020-01-08] MEDS: Polyethylene Glycol 3350 17 GM Packet PO SCH (08:42)
[2020-01-08] MEDS: Prenatal Vitamin 1 TAB PO SCH (08:42)
[2020-01-08 09:23] VITALS: BP 112/53; TEMP 98.2
== END 2020-01-08 12:50 | disposition home or self-care (01) | DRG 807 ==
LOC: L&D-LIB 22:01 → 3SW 01-07 02:38
PROVIDERS: ADMIT Family Medicine; ATTEND Family Medicine
PROC: 10E0XZZ Delivery of Products of Conception, External Approach (ICD-10-PCS; principal; 2020-01-07)
PROC: 3E033VJ Introduction of Other Hormone into Peripheral Vein, Percutaneous Approach (ICD-10-PCS; 2020-01-07)
DX: O99.214 Obesity complicating childbirth (principal); E66.9 Obesity, unspecified; O10.92 Unspecified pre-existing hypertension complicating childbirth; O71.82 Other specified trauma to perineum and vulva; Z37.0 Single live birth; Z3A.39 39 weeks gestation of pregnancy; Z91.048 Other nonmedicinal substance allergy status
CPT/HCPCS: 36415; 85027; 86780; 86850; 86900; 86901; 87340; C1726; J2210; J2405; J2590; J3490; S0020

== ENCOUNTER 2020-09-13 14:08 | Emergency (ER) | payer OTHER | END 2020-09-13 15:07 | disposition home or self-care (01) | LOC: ERS 14:08 | DX: Z32.00 Encounter for pregnancy test, result unknown (principal); R53.83 Other fatigue; R11.0 Nausea; G40.909 Epilepsy, unspecified, not intractable, without status epilepticus; Z87.891 Personal history of nicotine dependence | CPT/HCPCS: 99281 ==

== ENCOUNTER 2020-11-23 12:11 | Emergency (ER) | payer OTHER ==
[2020-11-23 12:32] LABS: #Eosinphils 0.3 thou/uL (0.0-0.7); #Lymphocytes 2.4 thou/uL (1.20-3.40); #Monocytes 0.6 thou/uL (0.11-0.59); #Neutrophils 5.2 thou/uL (1.40-6.50); %Basophils 0.5 % (0.0-1.0); %Eosinophils 3.5 % (0.0-10.0); %Lymphocytes 28.2 % (21.0-51.0); %Monocytes 7.4 % (0.0-10.0); %Neutrophils 60.3 % (42.0-75.0); Hemoglobin 12.7 g/dL (12.0-16.0); Mean Corpuscular HGB CONC 33.7 g/dL (32.0-36.0); Mean Corpuscular Hemoglobin 30.5 pg (27.0-31.0); Mean Corpuscular Volume 90.4 fL (78.0-98.0); Mean Platelet Volume 6.8 fL (7.4-10.4); Platelet Count 418 thou/uL (130-400); RBC Distribution Width 13.4 % (11.5-14.5); Red Blood Cell (RBC) Count 4.18 mill/uL (4.20-5.40); White Blood Cell (WBC) Count 8.5 thou/uL (4.8-10.8)
[2020-11-23 13:03] LABS: Bacteria/HPF None Seen HPF (None Seen); Bilirubin Negative (Negative); Blood, Urine Trace (Negative); Clarity Clear (Clear); Glucose, Urine (Dipstick) Normal (Negative); Ketone, Urine Negative (Negative); Leukocyte Negative Leu/uL (Negative); Nitrite Negative (Negative); Protein, Urine (Dipstick) Negative (Neg-Trace); RBC/HPF 0-3 HPF (0-3); Specific Gravity, Urine 1.029 (1.002-1.036); Squamous Epithelial 0-3 HPF (0-3); Urobilinogen Normal mg/dL (Less than 2); WBC/HPF 0-3 HPF (0-3); pH, Urine 6.5 (5.0-9.0)
[2020-11-23 13:07] LABS: Pregnancy Test - Urine (BHCG) Negative (Negative); Pregu Control Background? CLEAR/WHITE (CLR/WHITE); Pregu Control Bar Appear? YES (CONTROL BAR); Specific Gravity 1.029 (1.002-1.036)
[2020-11-23 13:24] LABS: BHCG - Serum Negative (NEGATIVE); Pregs Control Background? CLEAR/WHITE (CLR/WHITE); Pregs Control Bar Appear? YES (CONTROL BAR)
[2020-11-23 13:45] LABS: ALT (SGPT) 15 U/L (8-55); AST (SGOT) 12 U/L (5-34); Albumin 4.3 g/dL (3.5-5.0); Alkaline Phosphatase 120 U/L (40-110); Anion Gap 13 mmol/L (10-20); BUN (Urea Nitrogen) 13 mg/dL (7.0-18.7); Bilirubin, Total 0.5 mg/dL (0.2-1.2); Calc. Creatinine Clearance 0 mL/min (70-130); Calcium 9.6 mg/dL (7.8-10.44); Carbon Dioxide 27 mmol/L (22-29); Chloride 106 mmol/L (98-107); Glucose 80 mg/dL (70-105); Potassium 4.6 mmol/L (3.5-5.1); Protein, Total 7.3 g/dL (6.0-8.3); Sodium 141 mmol/L (136-145)
== END 2020-11-23 13:34 | disposition home or self-care (01) ==
LOC: ERS 12:11
DX: N92.6 Irregular menstruation, unspecified (principal); G43.909 Migraine, unspecified, not intractable, without status migrainosus
CPT/HCPCS: 36415; 80053; 81003; 81015; 81025; 84702; 84703; 85025; 99283

== ENCOUNTER 2021-07-16 08:28 | Emergency (ER) | payer OTHER ==
[2021-07-16 08:57] LABS: #Eosinphils 0.2 thou/uL (0.0-0.7); #Lymphocytes 2.7 thou/uL (1.20-3.40); #Monocytes 0.7 thou/uL (0.11-0.59); %Basophils 0.6 % (0.0-1.0); %Eosinophils 2.4 % (0.0-10.0); %Lymphocytes 35.1 % (21.0-51.0); %Monocytes 8.8 % (0.0-10.0); %Neutrophils 53.1 % (42.0-75.0); Hemoglobin 12.9 g/dL (12.0-16.0); Mean Corpuscular HGB CONC 32.8 g/dL (32.0-36.0); Mean Corpuscular Hemoglobin 29.8 pg (27.0-31.0); Mean Corpuscular Volume 90.9 fL (78.0-98.0); Mean Platelet Volume 6.6 fL (7.4-10.4); Platelet Count 423 thou/uL (130-400); RBC Distribution Width 13.3 % (11.5-14.5); Red Blood Cell (RBC) Count 4.31 mill/uL (4.20-5.40); White Blood Cell (WBC) Count 7.6 thou/uL (4.8-10.8)
[2021-07-16 09:07] LABS: BHCG - Serum Negative (NEGATIVE); Pregs Control Background? CLEAR/WHITE (CLR/WHITE); Pregs Control Bar Appear? YES (CONTROL BAR)
[2021-07-16 09:17] LABS: ALT (SGPT) 43 U/L (8-55); AST (SGOT) 21 U/L (5-34); Albumin 4.3 g/dL (3.5-5.0); Alkaline Phosphatase 105 U/L (40-110); Anion Gap 16 mmol/L (10-20); BUN (Urea Nitrogen) 14 mg/dL (7.0-18.7); Bilirubin, Total 0.5 mg/dL (0.2-1.2); Calc. Creatinine Clearance 0 mL/min (70-130); Calcium 9.7 mg/dL (7.8-10.44); Carbon Dioxide 23 mmol/L (22-29); Chloride 103 mmol/L (98-107); Globulin 3.3 g/dL (2.4-3.5); Glucose 116 mg/dL (70-105); Protein, Total 7.6 g/dL (6.0-8.3); Sodium 138 mmol/L (136-145)
[2021-07-16 09:33] LABS: Bacteria/HPF 4+ HPF (None Seen); Bilirubin Negative (Negative); Blood, Urine Negative (Negative); Clarity Turbid (Clear); Glucose, Urine (Dipstick) Normal (Negative); Ketone, Urine Negative (Negative); Leukocyte 500 Leu/uL (Negative); Nitrite Negative (Negative); Protein, Urine (Dipstick) 50 mg/dL (Neg-Trace); RBC/HPF 0-3 HPF (0-3); Specific Gravity, Urine 1.038 (1.002-1.036); Squamous Epithelial 21-50 HPF (0-3); Urobilinogen Normal mg/dL (Less than 2); pH, Urine 5.5 (5.0-9.0)
[2021-07-16 18:39] LABS: SARS-CoV-2 PCR by NAA Not Detected (NotDetected)
== END 2021-07-16 10:35 | disposition home or self-care (01) ==
LOC: ERS 08:28
DX: N39.0 Urinary tract infection, site not specified (principal); G43.909 Migraine, unspecified, not intractable, without status migrainosus; Z20.822 Contact with and (suspected) exposure to COVID-19; Z87.891 Personal history of nicotine dependence
CPT/HCPCS: 36415; 80053; 81003; 81015; 84703; 85025; 99284; U0003; U0005

== ENCOUNTER 2022-02-02 01:24 | Emergency (ER) | payer OTHER ==
[2022-02-02] MEDS ORDERED: Ondansetron ODT 8 MG TAB ONE (01:34)
== END 2022-02-02 02:41 | disposition home or self-care (01) ==
LOC: ERS 01:24
DX: R11.2 Nausea with vomiting, unspecified (principal); Z87.891 Personal history of nicotine dependence
CPT/HCPCS: 99283; Q0162